=== PATIENT | male | born 1935 | race Caucasian/White ===

== ENCOUNTER → 2016-12-27 | Outpatient (CLI) | payer OTHER ==
[~2016-12-27] MED LIST: ALL300 PO; AMR2 PO; ASPCH81 PO; GLC500 PO; LANS30CA12 PO; LSN25 PO; METO25TA3 PO; MULT-506 PO; OXYC-57 PO; SIMV40TA2 PO; SYN125 PO; [UNRECOGNIZED DRUG - OTHER]
--- NOTE | 2016-12-27 11:59 | DIAGNOSTIC IMAGING REPORT ---
VIDEO SWALLOW HISTORY: Dysphagia INABILITY TO SWALLOW Solids, weight LOSS TECHNIQUE: Video fluoroscopic evaluation of swallowing was performed in the AP and lateral projections by the speech pathology staff. The patient is fed nectar-thick and thin liquid barium, a barium coated wafer, and barium pudding. FLUOROSCOPY TIME: 2 minutes. COMPARISON STUDY: None. FINDINGS: There is normal hyoid excursion and epiglottic deflection. No significant penetration or aspiration identified. Swallowing function is within normal limits. IMPRESSION: 1. No aspiration identified. 2. Please see the speech pathologist report for detailed findings and recommendations. Electronically signed by: Jeffery Bhatt M.D. 12/27/2016 11:58 AM Dictated Date/Time: 12/27/2016 11:57 AM
--- NOTE | 2016-12-27 12:50 | SWALLOWING EVALUATION ---
HISTORY: This 81 year-old man was referred for a VFSS at [facility] in order to address c/o solid food dysphagia and occasional nasal reguritation. He reported being able to clear globus sensation with water. Patient has a PMH significant for coronary artery disease, diabetes, CABG, hernia repair, right hip replacement. 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 He had no information regarding results of EGD. Currently the patient's diet level is regular, but he reports needing to eat foods that are moist/slippery and needing to drink a lot of water with meals. PROCEDURE: The patient was seen in the Radiology Department of [facility] for the VFSS. Cursory examination of the oral cavity revealed adequate dentition. Movement of the articulators was WNL. The patient was seated on a stool and was viewed in both the Anterior-Posterior (A-P) and Lateral planes. Volitional phonation exercises completed in the A-P plane revealed bilateral vocal fold movement and vocal intensity within functional limits. In the lateral plane, the patient was given the following boluses: 1 tsp. thin liquid barium x 2, sequential swallows of thin liquid barium self-presented from a cup, 1 tsp. nectar-thick liquid barium, single swallow nectar-thick liquid barium self-presented from a cup, 1 tsp. barium pudding, and 1 club cracker with barium pudding. The patient was then repositioned into the A-P plane and given 1 tsp. barium pudding. RESULTS: Oral Stage: Labial closure and tongue control were adequate. Mastication was timely and efficient. Bolus transport was timely with brisk tongue motion. There was complete oral clearance. Swallow was timely with the head of the bolus at the posterior angle of ramus at the first hyoid excursion. Pharyngeal Stage: Soft palate elevation was complete. There was partial laryngeal elevation with partial superior movement of the thyroid cartilage/partial approximation of arytenoids to epiglottic petiole. Hyoid excursion was complete. Epiglottic inversion was complete. Laryngeal vestibular closure was incomplete with a narrow column of contrast present. Pharyngeal stripping wave was present but diminished. Pharyngeal contraction showed bilateral bulging. Pharyngoesophageal segment opening had partial distention/partial duration. Tongue base retraction was reduced with a trace column of contrast between the tongue base and posterior wall. There was a collection of residue on the pharyngeal structures with residue stuck on the posterior pharyngeal wall, valleculae, and pyriforms, but was cleared with a second swallow. Patient showed no aspiration throughout the study. Bilateral bulging in pharyngeal contraction represents muscle weakness. Patient frequently requires multiple swallows to clear boluses from the pharyngeal cavity, but is aware of the problem and alternates solid food with sips of water. Esophageal Stage: There was mid-distal retention in the esophagus. SUMMARY/RECOMMENDATIONS: This patient presents with mild pharyngeal dysphagia and s/s esophageal dysfunction. The following is recommended: 1. Slippery diet. Choose foods that are moist, loose, and slippery. Avoid foods that are thick, pasty, and doughy. Use condiments as needed to make foods slippery. 2. GERD precautions: patient should be seated up fully upright during and for 30 minutes after meals. Alternate solids and liquids. Use multiple swallows as necessary to clear boluses. 3. Patient may benefit from f/u speech therapy to learn exercises to increase strength of swallowing muscles. This may be available via Home Health or Outpatient Speech Services. A summary of the results and recommendations was discussed with patient and understanding was verbalized immediately following the study. Thank you for referral of this patient. Please contact me at if any additional information is needed Laureen Linton [facility]
== END | disposition home or self-care (01) ==
LOC: C.RAD 11:12
PROVIDERS: ATTEND Internal Medicine
DX: R13.12 Dysphagia, oropharyngeal phase (principal); R63.3 Feeding difficulties

== ENCOUNTER 2017-09-28 13:36 | Inpatient (IN) | payer OTHER ==
[~2017-09-28] VITALS: Ht 172.7 cm; Wt 60.4 kg
[2017-09-28 13:46] VITALS: Ht 172.7 cm; Wt 60.4 kg
--- NOTE | 2017-09-28 14:06 | EMERGENCY ROOM VISIT NOTE ---
History Report prepared by Tika: Rob Christina Under the Supervision of: Dr. Maicol Whitfield M.D. First contact with patient: 13:49 Chief Complaint: CHEST PAIN Stated Complaint: CHEST PAIN Nursing Triage Summary: pt here with intermittent chest pains x one month. pt states today had burning in chest into left arm. upon ems arrival pt denied any pain, took 4 baby aspirin prior to arrival. pt denies any sob. pt states hx of 5 stents, no hx of mi History of Present Illness The patient is an 82 year old male who presents to the Emergency Room with complaints of now-resolving chest pain that began at 1210 this afternoon, 1 hour and 40 minutes ago. The patient states that he has been experiencing intermittent "tiny sharp" pains for the past couple of months. Today at 1210 these symptoms worsened. He had a sharp pain that was a 4/10 in severity. The patient then developed some pain in the left arm. This episode lasted for about 30 minutes before resolving spontaneously. There was no nausea or diaphoresis at any time. He had some Aspirin prior to arrival. Over the past couple of months he has also noticed some unusual shortness of breath with exertion. He notes being " tired" after walking up his basement steps. Exertion has not caused the sharp pains to onset or worsen. He does have a history of 5 cardiac stents placed with a Coronary Artery Bypass Graft. He has never had a myocardial infarction. Source of History: patient Onset: 1 hr 40 min ago Position: chest, arm (left) Symptom Intensity: 4/10 in severity Quality: sharp ("tiny sharp") Timing: resolved (resovling ), other (Episode lasted roughly 30 minutes) Associated Symptoms: + SOB, No diaphoresis, No nausea Review of Systems See HPI for pertinent positives & negatives. A total of 10 systems reviewed and were otherwise negative. Past Medical & Surgical Medical Problems: (1) Ralph esophagus (2) Chest pain (3) DM type 2 (diabetes mellitus, type 2) (4) Dyslipidemia (5) HTN (hypertension) (6) Hypothyroidism (7) Iron deficiency anemia (8) Kidney stone (9) Kidney stones (10) Prostate CA Surgical Problems: (1) History of right hip replacement (2) History of right shoulder fracture (3) Hx of CABG (4) Hx of heart artery stent (5) Hx of prostatectomy (6) Hx of thyroidectomy Diabetes Family History Omitted secondary to age. Social History Marital Status: Housing Status: lives with significant other Current/Historical Medications Scheduled Allopurinol (Zyloprim), 300 MG PO DAILY Aspirin (Aspirin), 81 MG PO DAILY Atorvastatin (Lipitor), 20 MG PO DAILY Fluticasone Propionate (Nasal) (Flonase Allergy Relief), 2 SPRAYS CHANG DAILY Lansoprazole (Prevacid Solutab), 30 MG PO DAILY Levothyroxine Sodium (Synthroid), 88 MCG PO DAILY Lisinopril (Zestril), 2.5 MG PO DAILY Lutein-Zeaxanthin (Ocuvite Lutein 25 25-5 mg), 1 CAP PO DAILY Metformin Hcl Er (Glucophage Er), 500 MG PO BID Allergies Coded Allergies: No Known Allergies (Unverified , 09/28/17) Physical Exam Vital Signs Date Time Temp Pulse Resp B/P (MAP) Pulse Ox O2 Delivery O2 Flow Rate FiO2 09/28/17 16:06 73 17 154/72 98 Room Air 09/28/17 15:30 69 20 141/74 97 Room Air 09/28/17 15:00 68 12 136/71 97 Room Air 09/28/17 14:27 66 16 140/79 96 Room Air 09/28/17 13:46 36.6 83 16 165/77 97 Room Air 09/28/17 13:44 81 Physical Exam GENERAL: Patient is in no acute distress. HEENT: No acute trauma, normocephalic atraumatic, mucous membranes moist, no nasal congestion, no scleral icterus. NECK: No stridor, no adenopathy, no meningismus, trachea is midline. LUNGS: Scattered crackles bilaterally, no wheezing. Breath sounds are equal. No respiratory distress. HEART: Irregular rhythm, with a normal rate, no murmurs. ABDOMEN: Soft, nontender, bowel sounds positive, no hernias, no peritonitis. EXTREMITIES: No cyanosis or edema, full range of motion of all the joints without pain or difficulty, no signs for acute trauma. NEUROLOGIC: Oriented x 3, no acute motor or sensory deficits, no focal weakness. SKIN: No rash, no jaundice, no diaphoresis. Medical Decision & Procedures ER Provider Diagnostic Interpretation: Radiology results as stated below per my review and radiologist interpretation: CHEST ONE VIEW PORTABLE CLINICAL HISTORY: CHEST PAIN dyspnea COMPARISON STUDY: No previous studies for comparison. FINDINGS: Slight interstitial prominence throughout both hemithoraces. No evidence for well-defined infiltrate. Prior median sternotomy. Postoperative changes to the left shoulder. Old healed fracture right shoulder with superimposed degenerative change. IMPRESSION: Nonspecific bilateral interstitial prominence. The above report was generated using voice recognition software. It may contain grammatical, syntax or spelling errors. Electronically signed by: Jeffery Bhatt M.D. 09/28/2017 2:28 PM Dictated Date/Time: 09/28/2017 2:27 PM Laboratory Results Test 09/28/17 13:09 09/28/17 14:06 Prothrombin Time 10.4 SECONDS (9.0-12.0) Prothromb Time International Ratio 1.0 (0.9-1.1) Activated Partial Thromboplast Time 25.9 SECONDS (21.0-31.0) Partial Thromboplastin Ratio 1.0 Magnesium Level 1.9 mg/dl (1.8-2.4) Total Bilirubin 0.4 mg/dl (0.2-1) Aspartate Amino Transf (AST/SGOT) 18 U/L (15-37) Alanine Aminotransferase (ALT/SGPT) 20 U/L (12-78) Alkaline Phosphatase 82 U/L (45-117) Total Protein 7.4 gm/dl (6.4-8.2) Albumin 3.7 gm/dl (3.4-5.0) Globulin 3.7 gm/dl (2.5-4.0) Albumin/Globulin Ratio 1.0 (0.9-2) Bedside Troponin I < 0.030 ng/ml (0-0.045) Laboratory results reviewed by me. ECG Per My Interpretation Indication: chest pain Rate (beats per minute): 70 Rhythm: normal sinus Findings: other (No LIBRADO, No PVCs) ED Course 1351: The patient was evaluated in room B8. A complete history and physical exam was performed. 1509: I discussed the case with Dr. Azevedo - Cardiology. He suggests discussing the case with the patient and seeing if he would like me to talk to Dr. Ruelas - Patient's military nurse from [place], and see what he would like to have done. 1518: I discussed the case with the patient. He would like that I consult Dr. Yen - [place] [facility]. 1528: I discussed the case with Dr. Yovana Breen. He thinks we should have the patient brought in to the hospital for a catheterization. 1546: I discussed the case with Kylie Fountain. She will evaluate the patient for further treatment. I made Dr. Azevedo aware of this development. Medical Decision Differential Diagnosis includes; angina, myocardial infarction, anemia, electrolyte imbalance, aortic dissection, pulmonary embolism, musculoskeletal pain. There is no leukocytosis or concerning anemia. No significant electrolyte abnormality, kidney failure or hepatitis. EKG shows a sinus rhythm with PACs, no acute ischemia. Cardiac enzyme testing 1 is not consistent with acute cardiac injury. Chest x-ray does not show pneumonia, pneumothorax or mediastinal widening. The patient presents with chest pain. The pain is now resolved. He does have a long cardiac history. I did discuss his case with [facility]. They recommended I discuss the case with his primary military nurse in the [place] area. I did discuss the case with his military nurse and he actually recommended a hospital stay for further workup, possibly a cardiac catheterization. I talked to the patient, he did consent to a hospital stay. I discussed the case with case management. I did consult the on-call hospitalist and we discussed the case. [facility] cardiology is involved as well. Medication Reconcilliation Current Medication List: was personally reviewed by me Blood Pressure Screening Patient's blood pressure: Elevated blood pressure Referred to hospitalist. Consults Time Called: 1505 Consulting Physician: Dr. Roberto Carlos Breen Returned Call: 1509 I discussed the case with Dr. Roberto Carlos Breen. He suggests discussing the case with Dr. Ruelas - Patient's military nurse from [place], and see what he would like to have done. Additional Consults: Time Called: 1521 Consulted Physician: Dr. Yovana Gaitan Cardiology Returned Call: 1529 Additional Comments: I discussed the case with Dr. Yovana Breen. He thinks we should have the patient brought in to the hospital for a catheterization. Time Called: 1542 Consulted Physician: Kylie Ayoub PA-C Returned Call: 1543 Additional Comments: I discussed the case with Kylie Ayoub PA-C. She will evaluate the patient for further treatment. Impression Primary Impression: Precordial chest pain Scribe Attestation The scribe's documentation has been prepared under my direction and personally reviewed by me in its entirety. I confirm that the note above accurately reflects all work, treatment, procedures, and medical decision making performed by me. Departure Information Dispostion Being Evaluated By Hospitalist Referrals Kerri Camacho M.D. (PCP) Patient Instructions My [facility]
[2017-09-28] MEDS ORDERED: ATOR-22 PO (14:09)
[2017-09-28] MEDS ORDERED: ASPI-461 PO (14:09)
[2017-09-28] MEDS ORDERED: FLUT0.15 NAE (14:09)
[2017-09-28] MEDS ORDERED: LISI-789 PO (14:09)
[2017-09-28] MEDS ORDERED: ALLO300T2 PO (14:09)
[2017-09-28] MEDS ORDERED: LEVO88TA PO (14:09)
[2017-09-28] MEDS ORDERED: LUTE1CAP PO (14:09)
[2017-09-28] MEDS ORDERED: LANS30TA3 PO (14:09)
[2017-09-28] MEDS ORDERED: METF500T5 PO (14:09)
[2017-09-28 14:23] LABS: HEMOGLOBIN 12.5 g/dL (14.0-18.0); MEAN CELL VOLUME 97.5 fL (80-100); MEAN CORPUSCULAR HEMOGLOBIN 34.8 pg (25-34); MEAN CORPUSCULAR HGB CONC 35.7 g/dl (32-36); MEAN PLATELET VOLUME 9.8 fL (7.4-10.4); PLATELET COUNT 250 K/uL (130-400); RED CELL DISTRIBUTION WIDTH CV 12.7 % (11.5-14.5); RED CELL DISTRIBUTION WIDTH SD 44.9 fL (36.4-46.3); WHITE BLOOD COUNT 7.32 K/uL (4.8-10.8)
[2017-09-28 14:29] LABS: PTT PATIENT 25.9 SECONDS (21.0-31.0)
--- NOTE | 2017-09-28 14:30 | DIAGNOSTIC IMAGING REPORT ---
CHEST ONE VIEW PORTABLE CLINICAL HISTORY: CHEST PAIN dyspnea COMPARISON STUDY: No previous studies for comparison. FINDINGS: Slight interstitial prominence throughout both hemithoraces. No evidence for well-defined infiltrate. Prior median sternotomy. Postoperative changes to the left shoulder. Old healed fracture right shoulder with superimposed degenerative change. IMPRESSION: Nonspecific bilateral interstitial prominence. The above report was generated using voice recognition software. It may contain grammatical, syntax or spelling errors. Electronically signed by: Jeffery Bhatt M.D. 09/28/2017 2:28 PM Dictated Date/Time: 09/28/2017 2:27 PM
[2017-09-28 14:53] LABS: CREATININE 1.11 mg/dl (0.60-1.40); POTASSIUM 3.9 mmol/L (3.5-5.1)
[2017-09-28 14:54] LABS: ALBUMIN 3.7 gm/dl (3.4-5.0); CALCIUM 8.2 mg/dl (8.5-10.1); TOTAL PROTEIN 7.4 gm/dl (6.4-8.2)
[2017-09-28] MEDS ORDERED: ONDANSETRON INJ 2 MG/ML 2 ML VIAL IV PRN (16:45)
[2017-09-28] MEDS ORDERED: GLUCAGON FOR INJ 1 MG VIAL SQ PRN (16:45)
[2017-09-28] MEDS ORDERED: MAGNESIUM HYDROXIDE SUSP 30 ML UDC PO PRN (16:45)
[2017-09-28] MEDS ORDERED: NITROGLYCERIN 0.4 MG SL PER TAB CHARGE SL PRN (16:45)
[2017-09-28] MEDS ORDERED: GLUCOSE 40% GEL 15 GM TUBE PO PRN (16:45)
[2017-09-28] MEDS ORDERED: DEXTROSE 50% 50 ML SYR IV PRN (16:45)
[2017-09-28] MEDS ORDERED: GLUCOSE 10 TABS/TUBE PO PRN (16:45)
[2017-09-28] MEDS ORDERED: IV FLUIDS COMPLETED PRN (17:45)
[2017-09-28] MEDS: INSULIN ASPART 100 UNITS/ML 3 ML PEN SC SCH (21:00)
--- NOTE | 2017-09-28 22:11 | History and Physical ---
History & Physical Date & Time of Service: Sep 28, 2017 at 16:44 Chief Complaint: Chest Pain Primary Care Physician: Jean Carlos Bynum D.O. History of Present Illness Source: patient, clinic records, hospital records Pt is 82 y/o M with PMH HTN, dyslipidemia, CAD s/p stent & CABG, kidney stones, Brown's esophagus, prostate CA s/p prostatectomy, iron deficiency anemia requiring iron infusions presented to ER via EMS with c/o CP. Reports approx 12: 10 was watching the news when started with left sided CP with radiation to L arm that lasted approx 30 minutes. He chewed 4 baby aspirin. Pain resolved and pt reports been pain free since. Denies nausea, vomiting, SOB or diaphoresis with this pain today. Pt reports intermittent "twinges" to left chest that last a couple of seconds and can occur with exertion or without exertion for past couple of months. Reports SOB with exertion for past couple of months also. He follows with Dr Yen - advertising assistant in [place]. Denies fever/chills, diaphoresis, N/V/D/C, AGOSTO, dizziness, syncope, vision changes, neck pain, orthopnea, palpitations, cough, sore throat, choking, otalgia, rhinorrhea, abdominal pain, paresthesias, weakness, extremity edema, rashes, urinary symptoms. 02/2017: nuclear stress test: impression: normal myocardial perfusion SPECT images without evidence for pharmacologically induced ischemia. Mild global left ventricular hypokinesis with left ventricular ejection fraction post stress at 41%. Past Medical/Surgical History Medical Problems: (1) Brown esophagus Status: Chronic (2) DM type 2 (diabetes mellitus, type 2) Status: Chronic (3) Dyslipidemia Status: Chronic (4) HTN (hypertension) Status: Chronic (5) Hypothyroidism Status: Chronic (6) Iron deficiency anemia Status: Chronic (7) Kidney stone Status: Resolved (8) Kidney stones Status: Chronic (9) Prostate CA Status: Chronic Surgical Problems: (1) History of right hip replacement Status: Resolved (2) History of right shoulder fracture Permanent Comment: and surgical repair Status: Resolved (3) Hx of CABG Status: Resolved (4) Hx of heart artery stent Status: Resolved (5) Hx of prostatectomy Status: Resolved (6) Hx of thyroidectomy Status: Resolved Family History FH: CAD (coronary artery disease) FH: diabetes mellitus FH: lung cancer FH: stroke Social History Smoking Status: Former Smoker (quit 1991, smoked 0.5ppd x 50 years) Smokeless Tobacco Use: No Alcohol Use: 1 beer a week Drug Use: none Marital Status: Housing status: lives with significant other Immunizations History of Influenza Vaccine: Yes History of Tetanus Vaccine?: Unknown History of Pneumococcal: No History of Hepatitis B Vaccine: Unknown Allergies Coded Allergies: No Known Allergies (Unverified , 09/28/17) Home Medications Scheduled Allopurinol (Zyloprim), 300 MG PO DAILY Aspirin (Aspirin), 81 MG PO DAILY Atorvastatin (Lipitor), 20 MG PO DAILY Fluticasone Propionate (Nasal) (Flonase Allergy Relief), 2 SPRAYS CHANG DAILY Lansoprazole (Prevacid Solutab), 30 MG PO DAILY Levothyroxine Sodium (Synthroid), 88 MCG PO DAILY Lisinopril (Zestril), 2.5 MG PO DAILY Lutein-Zeaxanthin (Ocuvite Lutein 25 25-5 mg), 1 CAP PO DAILY Metformin Hcl Er (Glucophage Er), 500 MG PO BID Review of Systems See HPI for pertinent positives & negatives. All other systems reviewed and were otherwise negative Physical Exam Vital Signs Date Time Temp Pulse Resp B/P (MAP) Pulse Ox O2 Delivery O2 Flow Rate FiO2 09/28/17 15:30 69 20 141/74 97 Room Air 09/28/17 15:00 68 12 136/71 97 Room Air 09/28/17 14:27 66 16 140/79 96 Room Air 09/28/17 13:46 36.6 83 16 165/77 97 Room Air 09/28/17 13:44 81 General Appearance: WD/WN, no apparent distress Head: normocephalic, atraumatic Eyes: normal inspection, PERRL, EOMI, sclerae normal ENT: hearing grossly normal, pharynx normal, + pertinent finding (mucous membranes moist) Neck: supple, no JVD, trachea midline Respiratory/Chest: chest non-tender, lungs clear, normal breath sounds, no respiratory distress Cardiovascular: regular rate, rhythm, no murmur, normal peripheral pulses Abdomen/GI: normal bowel sounds, non tender, soft Extremities/Musculoskelatal: normal inspection, no calf tenderness, normal capillary refill, no pedal edema, normal range of motion Neurologic/Psych: alert, normal mood/affect, oriented x 3 Skin: normal color, warm/dry Diagnostics Laboratory Results Results Past 24 Hours Test 09/28/17 13:09 09/28/17 14:06 09/28/17 16:34 09/28/17 16:38 Range/Units White Blood Count 7.32 4.8-10.8 K/uL Red Blood Count 3.59 4.7-6.1 M/uL Hemoglobin 12.5 14.0-18.0 g/dL Hematocrit 35.0 42-52 % Mean Corpuscular Volume 97.5 80-100 fL Mean Corpuscular Hemoglobin 34.8 25-34 pg Mean Corpuscular Hemoglobin Concent 35.7 32-36 g/dl RDW Standard Deviation 44.9 36.4-46.3 fL RDW Coefficient of Variation 12.7 11.5-14.5 % Platelet Count 250 130-400 K/uL Mean Platelet Volume 9.8 7.4-10.4 fL Prothrombin Time 10.4 9.0-12.0 SECONDS Prothromb Time International Ratio 1.0 0.9-1.1 Activated Partial Thromboplast Time 25.9 21.0-31.0 SECONDS Partial Thromboplastin Ratio 1.0 Sodium Level 134 136-145 mmol/L Potassium Level 3.9 3.5-5.1 mmol/L Chloride Level 101 98-107 mmol/L Carbon Dioxide Level 25 21-32 mmol/L Anion Gap 8.0 3-11 mmol/L Blood Urea Nitrogen 17 7-18 mg/dl Creatinine 1.11 0.60-1.40 mg/dl Est Creatinine Clear Calc Drug Dose 43.4 ml/min Estimated GFR () 70.3 Estimated GFR (Non- 60.7 BUN/Creatinine Ratio 15.3 10-20 Random Glucose 212 70-99 mg/dl Calcium Level 8.2 8.5-10.1 mg/dl Total Bilirubin 0.4 0.2-1 mg/dl Aspartate Amino Transf (AST/SGOT) 18 15-37 U/L Alanine Aminotransferase (ALT/SGPT) 20 12-78 U/L Alkaline Phosphatase 82 45-117 U/L Total Protein 7.4 6.4-8.2 gm/dl Albumin 3.7 3.4-5.0 gm/dl Globulin 3.7 2.5-4.0 gm/dl Albumin/Globulin Ratio 1.0 0.9-2 Bedside Troponin I < 0.030 0-0.045 ng/ml Diagnostic Radiology CXR: IMPRESSION: Nonspecific bilateral interstitial prominence. EKG EKG: sinus rhythm with PAC's. Rate 70 Read by advertising assistant: Sinus rhythm with Premature atrial complexes Otherwise normal ECG No previous ECGs available Confirmed by Shar Jimenez ([id number]) on 09/28/2017 4:42:05 PM Impression Assessment and Plan CHEST PAIN R/O ACS. Risk factors: HTN, hyperlipidemia, DM, hx tobacco use Pt had left sided CP with radiation to L arm, lasted 30 minutes. No pain since. Took 324mg ASA. Initial POC troponin negative in ER. No acute EKG changes noted. -Monitor Vitals -Repeat EKG in am -Will trend troponin -Echo -Cardiology consult - Dr Azevedo in to see pt in ER -lipid panel, continue statin -ASA -Nitro prn CP and repeat EKG for CP -NPO after midnight for possible cardiac stress test or cardiac cath per cardiology DM II HA1c was 6.7 on 05/2017 -HA1c in am -hold metformin -NovoLog sliding scale per protocol DYSLIPIDEMIA Lipid panel 05/2017: Total: 146, LDL: 68, HDL: 53, Triglycerides: 126 -lipid panel in am -continue statin HYPOTHYROIDISM/HX THYROIDECTOMY TSH pending -continue levothyroxine BROWN'S ESOPHAGUS -continue PPI HX KIDNEY STONES -continue allopurinol HX CHRONIC ANEMIA Hx iron deficiency anemia, requiring iron infusions [id number]. last reported approx 1 month ago. Hgb: 12.5. Baseline approx 12.3 -monitor CBC HX PROSTATE CA S/P PROSTATECTOMY DVT Prophylaxis -Heparin SQ Disposition admit Tele Full, no mechanical ventilation as per discussion with pt Follows with Dr Bynum for routine care Pt was seen with Dr Humphrey. See addendum Attending Note: Patient is an 82 yr male with PMH CAD S/P CABG and other problems presents with history of left sided chest pain, MALIN, and generalized weakness. He reports that chest pain to be sharp, radiates to neck and LUE, 4/10 which improved with Aspirin and lasted for about 15 minutes. Currently he is chest pain free. Denies any other relevant history. EKG did not show any signs of acute ischemia. Troponin negative X 2. Physical Exam: Vitals signs as noted above General Appearance:Moderately built and nourished, no apparent distress Head: normocephalic, Atraumatic Eyes: normal inspection, EOMI, PERRL Neck: supple, Trachea midline Respiratory/Chest: Normal breath sounds, CTA Cardiovascular: S1, S2, No murmur Abdomen/GI:Soft, Non tender, Bowel sounds present Extremities/Musculoskelatal:normal inspection, no edema Neurologic/Psych:AAOX3, grossly no focal neurological deficits Skin:normal color,warm, Vertical CABG scar on chest, B/L shoulder surgical scars Assessment and Plan: Chest Pain: R/O ACS Risk factors: H/O CAD S/P CABG, HLP, DM II Initial troponin:Negative X 2 EKG shows: No signs of acute Ischemia CXR: Nonspecific bilateral interstitial prominence Trend serial cardiac enzymes, repeat EKG, fasting lipid panel in AM Check ECHO Start Aspirin, statins Oxygen PRN Likely to get Stress test or Cardiac Cath in AM NPO after midnight Cardiology consulted I personally reviewed the record. Patient is interviewed and examined at bedside. Patient's care is coordinated with Vinita Camacho PA-C. Please refer to the documentation above for details of patient's presentation and for discussion of other issues. Resuscitation Status VTE Prophylaxis Will order VTE Prophylaxis: Yes Additional Copies To Jean Carlos Bynum D.O.
[2017-09-28 23:15] VITALS: BP 125/69; PULSE 64; TEMP 36.7; O2SAT 99
[2017-09-28] MEDS: HEPARIN SOD 5000 UNIT/0.5 ML CARP SQ SCH (23:48)
[2017-09-29] VITALS (16 sets, daily range): BP systolic 114–154; BP diastolic 59–88; PULSE 59–79; TEMP 36.3–36.8; O2SAT 93–100
[2017-09-29] MEDS ORDERED: LEVOTHYROXINE 88 MCG TAB PO SCH (06:00)
[2017-09-29] MEDS: INSULIN ASPART 100 UNITS/ML 3 ML PEN SC SCH ×3 (07:00→21:07)
[2017-09-29 07:22] LABS: HEMATOCRIT 34.5 % (42-52); HEMOGLOBIN 11.3 g/dL (14.0-18.0); MEAN CELL VOLUME 96.6 fL (80-100); MEAN CORPUSCULAR HEMOGLOBIN 31.7 pg (25-34); MEAN CORPUSCULAR HGB CONC 32.8 g/dl (32-36); MEAN PLATELET VOLUME 9.3 fL (7.4-10.4); PLATELET COUNT 233 K/uL (130-400); RED CELL DISTRIBUTION WIDTH CV 12.7 % (11.5-14.5); RED CELL DISTRIBUTION WIDTH SD 44.5 fL (36.4-46.3); WHITE BLOOD COUNT 6.02 K/uL (4.8-10.8)
[2017-09-29 07:49] LABS: CALCIUM 8.1 mg/dl (8.5-10.1); CREATININE 1.09 mg/dl (0.60-1.40); POTASSIUM 3.6 mmol/L (3.5-5.1)
[2017-09-29] MEDS: LISINOPRIL 2.5 MG TAB PO SCH (07:50)
[2017-09-29] MEDS: ATORVASTATIN 20 MG TAB PO SCH (07:50)
[2017-09-29] MEDS: PANTOprazole SOD 40 MG TAB PO SCH (07:50)
[2017-09-29] MEDS: ALLOPURINOL 300 MG TAB PO SCH (07:50)
[2017-09-29] MEDS: ASPIRIN 81 MG ECTAB PO SCH (07:50)
[2017-09-29] MEDS: FLUTICASONE PROPIONATE NA SPR 16 GM BTL NAE SCH (07:51)
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
[2017-09-29] MEDS: HEPARIN SOD 5000 UNIT/0.5 ML CARP SQ SCH ×2 (09:00→21:06)
[2017-09-29 09:09] LABS: HEMOGLOBIN A1C 7.4 % (4.5-5.6)
[2017-09-29] MEDS ORDERED: DIAZEPAM 5MG TAB ONE (10:58)
[2017-09-29] MEDS ORDERED: LIDOCAINE HCL 1% 20 ML VIAL ONE (11:04)
--- NOTE | 2017-09-29 11:06 | Pre Sedation Assessment ---
Pre Sedation Assessment General Date of Sedation: Sep 29, 2017. Vital Signs Past 12 Hours Date Time Temp Pulse Resp B/P (MAP) Pulse Ox O2 Delivery O2 Flow Rate FiO2 09/29/17 08:00 Room Air 09/29/17 07:25 36.6 66 18 123/69 (87) 97 09/29/17 04:00 Room Air 09/29/17 03:25 36.8 67 15 126/59 (81) 96 Room Air 09/29/17 00:00 Room Air 09/28/17 23:15 36.7 64 17 125/69 (87) 99 Room Air Review Cardiovascular: regular rate, rhythm, no edema, no JVD Lungs: lungs clear Pre-Sedation Airway Assessment Smoking Status: Former Smoker (quit 1991, smoked 0.5ppd x 50 years) Hx of Sleep Apnea: No Short Thick Neck: No Oral Cavity: WNL Mallampati Classification: Class II ASA Classification: Class III NPO Status Date of Last Intake of Fluids: Sep 28, 2017 Time of Last Intake of Fluids: 2330 Procedure Planning Contraindications for Sedation: None Current Medications Reviewed: Yes Notes The planned sedation has been discussed with the patient. Informed Consent was obtained. I have identified the patient, determined the appropriateness of sedation and have assessed the patient immediately prior to the procedure. All medicine(s) and interventions are by my order.
--- NOTE | 2017-09-29 11:22 | PROGRESS NOTE ---
DATE: 09/29/2017 CARDIOLOGY CONSULTATION AND FOLLOWUP NOTE The patient seen and examined. Chart, medications, telemetry reviewed. SUBJECTIVE: The patient has had no further chest discomfort overnight, but he has been sedentary. Cardiac enzymes have returned negative. Notes no dizziness or lightheadedness. Notes no syncope or near syncope. Notes no arrhythmias on monitor. OBJECTIVE: VITAL SIGNS: Heart rate is 66, blood pressure is 123/69. HEENT: Normocephalic and atraumatic. Nares without discharge. Throat was clear. NECK: Supple without thyromegaly, lymphadenopathy, or JVD. There are no carotid bruits. LUNGS: Clear to auscultation. CARDIOVASCULAR: Regular. There is no S3 gallop. ABDOMEN: Soft, nontender. EXTREMITIES: Without cyanosis or clubbing. There is no peripheral edema. There are intact distal pulses. There is no audible abdominal or femoral bruits. DATA: EKG today demonstrates sinus bradycardia with improved T-wave inversion in inferior leads. Echocardiogram today demonstrates on preliminary review hypokinesis of the anterior posterior wall at the base and midlevel, otherwise preserved LV function, mild mitral insufficiency. LABORATORY STUDIES: Sodium is 135, potassium 3.6, chloride is 103, bicarbonate is 27, BUN is 14, creatinine is 1.09, glucose is 140, calcium is 8.1. Cholesterol is 129, LDL is 59. IMPRESSION: An 82-year-old male who usually got excellent health and class 1 functional capacity with known coronary artery disease with single-vessel coronary artery bypass grafting, DOMINGUEZ to the LAD in 2006, prior stenting of the left anterior descending and right coronary artery historically, presents now with a substantial change in exercise capacity, exertional chest discomfort consistent with angina equivalent. Discussed with the patient. He has been recommended to undergo cardiac catheterization by primary warehouse order puller. I agree with recommendations, procedure and risks explained in detail to the patient including risks of , myocardial infarction, stroke, bleeding, infection, dye reaction, renal, vascular and embolic injury. PLAN: Today would be image coronaries and assess need for further interventions. The patient is agreeable to plan. He has been n.p.o. since before midnight.
--- NOTE | 2017-09-29 11:31 | ECHOCARDIOGRAM REPORT ---
*NOTICE TO RECEIVING [employer] This information is strictly Confidential and protected under [place] law. [place] law prohibits you from making any further disclosure of this information unless further disclosure is expressly permitted by the written consent of the person to whom it pertains or is authorized by law. A general authorization for the release of medical or other information is not sufficient for this purpose. Hospital accepts no responsibility if the information is made available to any other person, INCLUDING THE PATIENT. Interpretation Summary * Name: ZAID DRAKE Study Date: 09/29/2017 09:28 AM BP: 126/59 mmHg * Patient Location: [facility] HR: 67 * : 1935 (M/d/yyyy) Gender: Male Height: 67 in * Age: 82 yrs Ethnicity: CA Weight: 136 lb * Ordering Physician: Vinita Camacho * Referring Physician: Self, Referred * Performed By: Quynh Ho RDCS * * Reason For Study: Chest Pain * BSA: 1.7 m2 * -- Conclusions -- * Normal LV chamber size and wall thickness. * Normal LV systolic function, EF 50-55%. * No segmental left ventricular wall motion abnormalities are noted. * Grade I diastolic dysfunction. * Aortic valve sclerosis moderate, without significant aortic valvular stenosis. * Mild mitral regurgitation. * Mild left atrial enlargement. Procedure Details * A complete two-dimensional transthoracic echocardiogram was performed (2D, M-mode, Doppler and color flow Doppler). Left Ventricle * The left ventricle is normal in size. * There is normal left ventricular wall thickness. * Ejection Fraction = 50-55%. * Left ventricular systolic function is normal. * No segmental left ventricular wall motion abnormalities are noted. Right Ventricle * The right ventricular cavity size is normal (basal dimension <4.2 cm in right ventricular apical 4-chamber view). * The right ventricular systolic function is normal as assessed by tricuspid annular plane systolic excursion (TAPSE) (normal >1.5 cm). Atria * The left atrium is mildly dilated. * Right atrial size is normal. * No ASD detected; PFO is not assessed. Mitral Valve * The mitral valve anatomy is normal. * There is no mitral valve stenosis. * There is mild mitral regurgitation. Tricuspid Valve * The tricuspid valve is normal in structure and function. Aortic Valve * The aortic valve is trileaflet. * Aortic valve sclerosis moderate, without significant aortic valvular stenosis. * There is no significant aortic regurgitation. Pulmonic Valve * The pulmonary valve is not well seen, but the Doppler examination is normal without significant regurgitation or stenosis. Great Vessels * The aortic root is normal size. Pericardium/Pleural * There is no pericardial effusion. Left Ventricular Diastolic Function * Grade I diastolic dysfunction, (abnormal relaxation pattern). MMode 2D Measurements and Calculations IVSd 0.78 cm IVSs 1.1 cm LVIDd 5.0 cm LVIDs 3.7 cm LVPWd 1.2 cm LVPWs 1.6 cm IVS/LVPW 0.64 FS 25.4 % EDV(Teich) 117.1 ml ESV(Teich) 58.6 ml EF(Teich) 49.9 % EDV(cubed) 123.4 ml ESV(cubed) 51.2 ml EF(cubed) 58.5 % % IVS thick 44.2 % % LVPW thick 34.5 % LV mass(C)d 180.5 grams LV mass(C)dI 105.1 grams/m\S\2 LV mass(C)s 184.0 grams LV mass(C)sI 107.2 grams/m\S\2 SV(Teich) 58.5 ml SI(Teich) 34.1 ml/m\S\2 SV(cubed) 72.2 ml SI(cubed) 42.1 ml/m\S\2 Ao root diam 3.1 cm Ao root area 7.3 cm\S\2 ACS 1.5 cm LA dimension 4.0 cm LA/Ao 1.3 LVAd ap4 34.0 cm\S\2 LVLd ap4 7.9 cm EDV(MOD-sp4) 120.1 ml EDV(sp4-el) 124.3 ml LVAs ap4 20.8 cm\S\2 LVLs ap4 6.6 cm ESV(MOD-sp4) 58.3 ml ESV(sp4-el) 55.6 ml EF(MOD-sp4) 51.4 % EF(sp4-el) 55.3 % LVAd ap2 26.6 cm\S\2 LVLd ap2 8.1 cm EDV(MOD-sp2) 77.0 ml EDV(sp2-el) 74.6 ml LVAs ap2 17.5 cm\S\2 LVLs ap2 6.8 cm ESV(MOD-sp2) 37.3 ml ESV(sp2-el) 38.5 ml EF(MOD-sp2) 51.5 % EF(sp2-el) 48.4 % LVLd %diff 2.1 % EDV(MOD-bp) 96.4 ml LVLs %diff 2.2 % ESV(MOD-bp) 47.4 ml EF(MOD-bp) 50.8 % SV(MOD-sp4) 61.7 ml SI(MOD-sp4) 36.0 ml/m\S\2 SV(MOD-sp2) 39.7 ml SI(MOD-sp2) 23.1 ml/m\S\2 SV(MOD-bp) 49.0 ml SI(MOD-bp) 28.5 ml/m\S\2 SV(sp4-el) 68.7 ml SI(sp4-el) 40.0 ml/m\S\2 SV(sp2-el) 36.1 ml SI(sp2-el) 21.1 ml/m\S\2 Doppler Measurements and Calculations MV E max faye 54.3 cm/sec MV A max faye 67.9 cm/sec MV E/A 0.80 MV dec time 0.45 sec Ao V2 max 100.8 cm/sec Ao max PG 4.1 mmHg Ao max PG (full) 2.7 mmHg LV V1 max PG 1.4 mmHg LV V1 max 59.2 cm/sec PA V2 max 96.4 cm/sec PA max PG 3.7 mmHg PI max faye 164.2 cm/sec PI max PG 10.8 mmHg PI dec slope 116.5 cm/sec\S\2 PI P1/2t 412.9 msec
[2017-09-29] MEDS ORDERED: NiCARDipine HCL INJ 2.5 MG/ML 10 ML AMP ONE (11:57)
[2017-09-29] MEDS ORDERED: MIDAZOLAM HCL 1 MG/ML 2ML VIAL ONE (11:57)
[2017-09-29] MEDS ORDERED: NITROGLYCERIN/D5W 100MCG/ML 20ML SYR ONE (11:57)
[2017-09-29] MEDS ORDERED: FENTANYL CITRATE INJ 50 MCG/1 ML 2 ML VIAL ONE (11:57)
[2017-09-29] MEDS ORDERED: HEPARIN SOD (PORCINE) 1000 UNIT/ML 10 ML VIAL ONE (11:57)
--- NOTE | 2017-09-29 12:07 | [facility] Post Operative Brief Note ---
Preliminary Procedure Note Procedure Date Sep 29, 2017. Pre-Procedure Diagnosis Angina AUC Score 7 Post-Procedure Diagnosis Severe CAD Procedure(s) Performed Coronary Angiography, Left Heart Cath Utilization Management Rn Dr. Chase Azevedo Sourcing Coordinator(s) Dax Kline Estimated Blood Loss <15 Medication(s) Lidocaine 1% (local infiltration), Diphenhydramine (25 mg po), Diazepam (5mg po) Preliminary Findings Right dominant coronary anatomy Left main: Moderately long and calcified ostial stenosis 75% Left anterior descending: Type III vessel with long area of stenting in its proximal third. There is diffuse disease in the proximal third with an 80% in- stent stenosis. DOMINGUEZ graft attaches to the mid vessel and fills it well to the apex with competitive flow through the [place] vessel DOMINGUEZ graft to the LAD: Patent with excellent graft anastomosis Ramus intermedius: This is a small insignificant vessel Circumflex: Nondominant but with large circumflex and single posterior lateral branch. Mild luminal irregularities are throughout but no obstruction other than 20-30% origin Right coronary artery: Large caliber vessel with extensive stenting in its proximal midportion. At the AV groove and gives rise to a long posterior ventricular branch and a long posterior descending artery. There is a mid vessel in-stent stenosis of 90% or greater. LV angiography not performed Left ventricular end-diastolic pressure 5 Recommendations PCI without planned CABG (Andie Kline) Specimens None Fluids (cc crystalloids) 50 Anesthesia Start 1101 End 1137 Oral anxiolytic only Procedural Complication(s) None Disposition PCU
--- NOTE | 2017-09-29 12:44 | Post Sedation Assessment ---
Post Sedation Assessment General Date of Sedation Sep 29, 2017. Vital Signs: Vital Signs Past 12 Hours Date Time Temp Pulse Resp B/P (MAP) Pulse Ox O2 Delivery O2 Flow Rate FiO2 09/29/17 08:00 Room Air 09/29/17 07:25 36.6 66 18 123/69 (87) 97 09/29/17 04:00 Room Air 09/29/17 03:25 36.8 67 15 126/59 (81) 96 Room Air Post Procedure Recovery Score Activity: (2) Moves 4 extremities * Respiration: (2) Deep breath/cough Circulation: (2) +/-20% PreAnes Value Consciousness: (2) Fully Awake Oxygen Saturation: (2) > 92% On Room Air Post Anesthesia Score: 10 Discharge Sedation Level of Care: Fast Track Phase II Post Sedation Plan On clinical assessment, the patient appears to have tolerated the sedation without complications. Patient is recovering as anticipated. Patient will continue to be monitored by nursing and may be discharged when sedation discharge criteria are met per below protocol. Upon Completions of procedure and additional 15 minutes continue every 5 minute vital signs and the P.A.R. score; then discharge to a Phase I or Fast Track to Phase II per the following guidelines: * Discharge Patient to appropriate Phase II area if PAR is 8 or greater or return to pre- procedure baseline. The post - procedure orders will be as directed. * If PAR score is less than 8 or not return to pre-procedure baseline then patient will follow Phase I monitoring till PAR is reached for Phase II. The Phase I may be done in procedure room or may call to secure a Phase I area. * If naloxone or flumazenil are used for reversal, hold in Phase I for an additional 60 -120 minutes before discharge to Phase II. Please call the Sedation Physician to re-evaluate and complete post-note for discharge to Phase II area. Do NOT discharge from procedure sedation or Phase 1 until post- sedation evaluation note is complete by procedure /sedation MD Sedation Discharge Instructions to be given to the patient at discharge to home.
[2017-09-29] MEDS ORDERED: CLOPIDOGREL BISULFATE 300 MG TAB PO ONE (12:49)
--- NOTE | 2017-09-29 12:53 | Cardiac Catheterization ---
Procedure Note Procedure Date Sep 29, 2017. 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 Azevedo from earlier today for full details of patient's coronary angiography. Patient found to have 90+% mid RCA in-stent restenosis which was thought to be likely culprit for acute symptoms. -- PCI of RCA-- Antithrombotic therapy: Heparin, Clopidogrel Procedure: RCA cannulated with JR4 guide Oven Drier Tender 50 wire passed across lesion into distal vessel Intra-stent RCA lesion predilated with 3.0 compliant balloon Dilated lesion stented with 3.5 x 18 Xience LADI extending a few mm distal to prior stent Stent post-dilated with 3.75 noncompliant balloon to high atmospheres IC vasodilators administered for spasm Post procedure HAYDEE 3 flow, stent well expanded with minimal residual stenosis and no apparent cardiac complications. Arterial Closure: AngioSeal Summary: 1. Successful PCI of mid RCA in-stent restenosis with a single LADI (3.5 x 18 Xience extending just distal to prior stent; post-dilated with 3.75 NC). 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 Azevedo Consult cardiac Rehab If recurrent symptoms in future can consider possible PCI of protected ostial left main, +/- FFR of ostial RCA Hemodynamics Rest Ao: -- Final Ao: -- LV: 98/47/68 Recommendations PCI without planned CABG Specimens None Radiation Exposure (mGy) 2504 Contrast (mls) 131 Visi Fluids (cc crystalloids) 150 Drains None Anesthesia Moderate Procedural Complication(s) None Disposition PCU ACC Data Cardiac Status Clinical evaluation leading to the procedure CAD Presntation: Unstable angina Anginal Classification: CCS III Heart Failure: No, NYHA Class: CCS I Cardiogenic Shock w/in 24Hrs: No Cardiac Arrest w/in 24Hrs: No Imaging studies past 6 months: Yes Stress studies past 6 months: No Diagnostic Physician's Name: Chase Azevedo M.D. Status: Elective Closure Device Percutaneous Entry Location: Femoral Closure Device: Angio-Seal Recommendations: Medical therapy and/or Counseling PCI Indication: Unstable Angina Lesion Segment Name: mid RCA Culprit Artery: Yes Stenosis Prior to Rx (%): 90 Chronic Total Occlusion: No IVUS: No FFR: No Pre-Procedure HAYDEE Flow: 3 Previously Treated Lesion: Yes Treated Lesion: Timeframe: greater than 2 years Treated with Stent: Yes In-Stent Restenosis: Yes Stent Type: Non-LADI Lesion Complexity: Non-High/Non-C Lesion Length (mm): 12 Thrombus Present: No Bifurcation Lesion: No Guidewire Across Lesion: Yes Guidewire: Stenosis Post-Procedure (%): 0 Post-Procedure HAYDEE Flow: 3 Device(s) Deployed: Yes Intraprocedure Events Significant Dissection: No Perforation: No
[2017-09-29] MEDS ORDERED: SODIUM CHLORIDE 0.9% 1000ML 1,000 ML IV SCH (13:00)
--- NOTE | 2017-09-29 16:13 | Progress Note ---
Medicine Progress Note Date & Time of Visit: Sep 29, 2017 at 15:44. Subjective Pt was seen and examined Lying in bed with no distress Pt said that he feels fine He just had cardiac cath done Pt said that he does have any chest pain now Unable to keep his legs down to prevent any hematoma from the right groin area denies any dizziness, palpitation, chest pain and SOB Objective Last 8 Hrs Date Time Temp Pulse Resp B/P (MAP) Pulse Ox O2 Delivery O2 Flow Rate FiO2 09/29/17 15:40 72 18 131/64 (86) 95 Room Air 09/29/17 15:00 72 16 152/88 (109) 09/29/17 14:30 36.4 71 16 154/69 (97) 96 Room Air 09/29/17 14:00 36.6 79 18 133/79 (97) 97 Room Air 09/29/17 13:30 36.5 66 18 119/65 (83) 96 Room Air 09/29/17 13:15 36.7 63 18 116/71 (86) 94 Room Air 09/29/17 13:04 36.3 59 16 127/72 (90) 95 Room Air 09/29/17 12:50 66 18 128/67 (87) 99 Room Air 09/29/17 12:40 65 18 125/59 (81) 99 Room Air 09/29/17 08:00 Room Air Physical Exam: General- No acute distress Head- atraumatic Eyes- PERRL, EOMI ENT- oropharynx clear Neck- supple, no JVD Lungs- clear to auscultation Heart- regular rhythm Abdomen- normal bowel sounds, soft Extremities- No calf tenderness, right groin area with dressing on. Neuro- alert, oriented x 3; PERRL, EOMI Skin- warm & dry Laboratory Results: Last 24 Hours Test 09/28/17 19:07 09/28/17 20:43 09/29/17 01:00 09/29/17 06:20 Troponin I < 0.015 ng/ml < 0.015 ng/ml Bedside Glucose 140 mg/dl 140 mg/dl Test 09/29/17 07:03 09/29/17 12:21 09/29/17 13:22 White Blood Count 6.02 K/uL Red Blood Count 3.57 M/uL Hemoglobin 11.3 g/dL Hematocrit 34.5 % Mean Corpuscular Volume 96.6 fL Mean Corpuscular Hemoglobin 31.7 pg Mean Corpuscular Hemoglobin Concent 32.8 g/dl RDW Standard Deviation 44.5 fL RDW Coefficient of Variation 12.7 % Platelet Count 233 K/uL Mean Platelet Volume 9.3 fL Sodium Level 135 mmol/L Potassium Level 3.6 mmol/L Chloride Level 103 mmol/L Carbon Dioxide Level 27 mmol/L Anion Gap 6.0 mmol/L Blood Urea Nitrogen 14 mg/dl Creatinine 1.09 mg/dl Est Creatinine Clear Calc Drug Dose 42.4 ml/min Estimated GFR () 71.9 Estimated GFR (Non- 62.0 BUN/Creatinine Ratio 12.8 Random Glucose 140 mg/dl Estimated Average Glucose 166 mg/dl Hemoglobin A1c 7.4 % Calcium Level 8.1 mg/dl Triglycerides Level 125 mg/dl Cholesterol Level 129 mg/dl HDL Cholesterol 45 mg/dl LDL Cholesterol, Calculated 59 mg/dl VLDL Cholesterol, Calculated 25 mg/dl Cholesterol/HDL Ratio 2.9 Thyroid Stimulating Hormone (TSH) 0.278 uIu/ml Free Thyroxine 1.06 ng/dl Kaolin Activated Coagulation Time 241 SECONDS Bedside Glucose 123 mg/dl Assessment & Plan CHEST PAIN Risk factors: HTN, Hyperlipidemia, DM, hx tobacco use Received Aspirin 324mg on admission Troponinx3 sets negative Cardiology on board S/P Successful PCI of mid RCA in-stent restenosis with a single LADI (3.5 x 18 Xience extending just distal to prior stent; post-dilated with 3.75 NC). Continue dual-antiplatelet therapy with aspirin and plavix for at least 12 months Continue statin therapy LDL 59 Monitor in telemetry ECHO showed * Normal LV chamber size and wall thickness. * Normal LV systolic function, EF 50-55%. * No segmental left ventricular wall motion abnormalities are noted. * Grade I diastolic dysfunction. * Aortic valve sclerosis moderate, without significant aortic valvular stenosis. * Mild mitral regurgitation. * Mild left atrial enlargement. DM II Recent Hba1c 7.4 (09/29/17) Continue holding metformin NovoLog sliding scale per protocol DYSLIPIDEMIA LDL at goal continue statin HYPOTHYROIDISM/ HX THYROIDECTOMY Will decrease levothyroxine to 75mcg Check TSH between 4 to 6 weeks BROWN'S ESOPHAGUS continue PPI HX KIDNEY STONES continue allopurinol HX CHRONIC ANEMIA Hbg 11.3 Stable HX PROSTATE CA S/P PROSTATECTOMY DVT Prophylaxis Heparin SQ Disposition Continue monitor in tele Current Inpatient Medications: Current Inpatient Medications Medications (Trade) Dose Ordered Sig/Mandi Route Start Time Stop Time Status Last Admin Dose Admin Acetaminophen (Tylenol Tab) 650 mg Q4H PRN PO 09/28/17 16:45 10/28/17 16:44 Magnesium Hydroxide (Milk Of Magnesia Susp) 30 ml Q12H PRN PO 09/28/17 16:45 10/28/17 16:44 Ondansetron HCl (Zofran Inj) 4 mg Q6H PRN IV 09/28/17 16:45 10/28/17 16:44 Nitroglycerin (Nitrostat Tab) 0.4 mg UD PRN SL 09/28/17 16:45 10/28/17 16:44 Aspirin (Ecotrin Tab) 81 mg QAM PO 09/29/17 09:00 10/29/17 08:59 09/29/17 07:50 81 MG Insulin Aspart (novoLOG ASPART) SLIDING SCALE If C... ACHS SC 09/28/17 21:00 10/28/17 20:59 Glucose (Glucose 40% Gel) 15-30 GRAMS 15 GRAMS... UD PRN PO 09/28/17 16:45 10/28/17 16:44 Glucose (Glucose Chew Tab) 4-8 Tablets 4 Tabl... UD PRN PO 09/28/17 16:45 10/28/17 16:44 Dextrose (Dextrose 50% 50ML Syringe) 25-50ML OF 50% DW IV FOR... UD PRN IV 09/28/17 16:45 10/28/17 16:44 Glucagon (Glucagon Inj) 1 mg UD PRN SQ 09/28/17 16:45 10/28/17 16:44 Allopurinol (Zyloprim Tab) 300 mg DAILY PO 09/29/17 09:00 10/29/17 08:59 09/29/17 07:50 300 MG Atorvastatin Calcium (Lipitor Tab) 20 mg DAILY PO 09/29/17 09:00 10/29/17 08:59 09/29/17 07:50 20 MG Fluticasone Propionate (Flonase Nasal [place]) 2 sprays DAILY CHANG 09/29/17 09:00 10/29/17 08:59 09/29/17 07:51 2 SPRAYS Pantoprazole Sodium (Protonix Tab) 40 mg QAM PO 09/29/17 09:00 10/29/17 08:59 09/29/17 07:50 40 MG Levothyroxine Sodium (Synthroid Tab) 88 mcg DAILYBB PO 09/29/17 06:00 10/29/17 06:59 Lisinopril (Zestril Tab) 2.5 mg DAILY PO 09/29/17 09:00 10/29/17 08:59 09/29/17 07:50 2.5 MG Heparin Sodium (Porcine) (Heparin Sq 5000 Unit/0.5ml) 5,000 unit Q12 SQ 09/28/17 21:00 10/28/17 20:59 Miscellaneous (Iv Fluids Completed) 1 ea PRN PRN N/A 09/28/17 17:45 09/28/18 17:44 Sodium Chloride 1,000 ml @ 100 mls/hr Q10H IV 09/29/17 13:00 09/29/17 20:29 Clopidogrel Bisulfate (plAVix TAB) 75 mg QAM PO 09/30/17 09:00 10/30/17 08:59
--- NOTE | 2017-09-29 19:08 | CARDIAC CATH REPORT ---
PRIMARY CARE PHYSICIAN: Dr. Bynum. PRIMARY OPHTHALMIC ASST: Dr. Yen in [place]. INDICATIONS: Exertional angina, dramatic change in exercise capacity, history of known coronary disease. PROCEDURE: Left heart catheterization, coronary angiography. BRIEF HISTORY: The patient is an 82-year-old male with history of known coronary artery disease with prior multiple coronary interventions per the patient in 2004 with stenting to the left anterior descending and right coronary artery. The patient ultimately re-presented with restenosis of the left anterior descending in 2006 and underwent coronary bypass grafting single vessel, receiving DOMINGUEZ graft to the LAD. He has had stable class 1-2 functional capacity for multiple years but notes over the past 1 month's time substantial decline in overall functional capacity and exertional chest pressure and tightness. Symptoms culminated in rest symptoms on the day of admission on 09/28/2017. Cardiac markers were negative for myocardial injury. The patient manifested no congestive heart failure. Rest angina was noted at the time of admission, class 3-4. No stress testing was performed. Echocardiogram done prior to the procedure demonstrated mild hypokinesis of the inferior and posterior wall, reflecting new finding. ACCESS: Right femoral artery. CATHETERS: A 5-Australian arterial sheath, 5-Australian JL4, 5-Australian 3DRC, 5-Australian straight pigtail. CONTRAST: Nonionic x91 mL Visipaque. IV FLUIDS: 50 mL normal saline. SEDATION: Start 11:01, end 11:37. The patient received only anxiolytic therapy with Valium 5 mg p.o. and Benadryl 25 mg p.o. MEDICATIONS: Access site was anesthetized locally with lidocaine 1%. RESULTS: CORONARY ANGIOGRAPHY: Note right dominant coronary anatomy is present. LEFT MAIN: The left main is moderate in caliber and length. It gives rise to a large left anterior descending, trivial ramus intermedius and the left circumflex. It is mildly calcified. There is an ostial narrowing of 60-70%. LEFT ANTERIOR DESCENDING: Left anterior descending is type 3 in distribution. It gives rise to septal branches in its proximal segment, followed by a moderately sized diagonal branch at the end of its proximal third and then courses to terminate beyond the apex, the left internal mammary artery graft anastomosis with the mid portion in the left anterior descending and there is competitive filling of the distal vessel. The proximal left anterior descending has extensive area of stenting with an in-stent narrowing of 80% in its mid portion. The distal vessel has moderate irregularities but no obstructive disease. The anastomosis point of the left internal mammary graft is widely patent. RAMUS INTERMEDIUS: This is a trivial vessel and is free of disease. LEFT CIRCUMFLEX: Left circumflex is nondominant, gives rise to a large obtuse marginal with a single posterolateral branch. There are mild luminal irregularities, 20-30% narrowing at the origin, otherwise no obstruction. RIGHT CORONARY ARTERY: The right coronary is very large caliber vessel, gives rise to a right ventricular branch in its mid portion, a small acute marginal branch at the AV groove, a long posterior descending and a long posterior ventricular branch along the AV groove. Within the right coronary artery, there is an area of extensive stenting in its proximal third. Within the area of stent, there is a high-grade 90% stenosis at the end of the proximal third. The distal vessel has moderate irregularities. LV angiography not performed in an attempt to conserve contrast with normal overall LV function on echocardiogram. HEMODYNAMICS: Initial aortic root pressure was 144/53 with a mean of 88. LV pressure following coronary angiography was 118/0 with LVEDP of 5. Closing aortic root pressure was 137/53 with a mean of 91. RADIATION EXPOSURE: 4.0 minutes of fluoroscopy, 950 milligrays, DAP score 6316. FINAL IMPRESSIONS: 1. Widely patent left internal mammary artery graft to the mid left anterior descending. 2. High-grade stenosis of the mid right coronary artery in area of prior stenting of 90%. 3. 80% narrowing in the proximal left anterior descending prior to the area of left anterior descending graft. 4. Ostial narrowing of the left main, eccentric and calcified, 60%-70%. RECOMMENDATIONS: The patient is referred for coronary intervention of the right coronary artery. If no clinical improvement, consideration may be made for protected left main intervention.
[2017-09-29] MEDS: ACETAMINOPHEN 325 MG TAB PO PRN ×2 (19:50→23:42)
[2017-09-30] VITALS (7 sets, daily range): BP systolic 116–132; BP diastolic 64–74; PULSE 61–76; TEMP 36.5–36.9; O2SAT 94–98
[2017-09-30] MEDS ORDERED: LEVOTHYROXINE 75 MCG TAB PO SCH (06:00)
--- NOTE | 2017-09-30 07:31 | Clinical Documentation Query ---
NAYA Doe : CLINICAL DOCUMENTATION QUERY Documentation includes: CHEST PAIN. 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 As appropriate, please consider documentation as suggested below. Thank you. Known CAD with risk factors of age, gender, hypertension, hyperlipidemia, DM, tobacco abuse. Treated with diagnostic and interventional cardiac catheterization. Underwent successful PCI of mid RCA in-stent restenosis with a single LADI. To be maintained on DAPT for at least 12 months. Continue statin. Monitor on telemetry. In your clinical opinion is this patient being managed for: ( ) Unstable angina ( ) Not Agree ( ) Other explanation of clinical findings (Please Explain) ( ) Unable to determine (Please Define) ( ) Need to Discuss The medical record reflects the following clinical findings, treatment, and risk factors. Clinical Indicators: As above Treatment: Underwent successful PCI of mid RCA in-stent restenosis with a single LADI. To be maintained on DAPT for at least 12 months. Continue statin. Monitor on telemetry. Risk Factors:Known CAD with risk factors of age, gender, hypertension, hyperlipidemia, DM, tobacco abuse Please clarify and document your clinical opinion in the progress notes and discharge summary. Terms such as "probable", "suspected", "likely", "questionable", "possible", or "still to be ruled out" are acceptable. IF IN AGREEMENT, YOU MUST DOCUMENT ABOVE DIAGNOSTIC STATEMENT IN DAILY PROGRESS NOTES AND DISCHARGE SUMMARY. This document is not part of the patient's record. Thank You, Owen Epstein, RN [phone]
[2017-09-30] MEDS: INSULIN ASPART 100 UNITS/ML 3 ML PEN SC SCH ×2 (08:05→13:03)
[2017-09-30] MEDS: LISINOPRIL 2.5 MG TAB PO SCH (08:06)
[2017-09-30] MEDS: ASPIRIN 81 MG ECTAB PO SCH (08:06)
[2017-09-30] MEDS: HEPARIN SOD 5000 UNIT/0.5 ML CARP SQ SCH (08:06)
[2017-09-30] MEDS: ATORVASTATIN 20 MG TAB PO SCH (08:06)
[2017-09-30] MEDS: ALLOPURINOL 300 MG TAB PO SCH (08:06)
[2017-09-30] MEDS: PANTOprazole SOD 40 MG TAB PO SCH (08:07)
[2017-09-30] MEDS: FLUTICASONE PROPIONATE NA SPR 16 GM BTL NAE SCH (08:08)
[2017-09-30] MEDS ORDERED: CLOPIDOGREL BISULFATE 75 MG TAB PO SCH (09:00)
--- NOTE | 2017-09-30 10:13 | CARDIOLOGY PROGRESS NOTE ---
DATE: 09/30/2017 CARDIOLOGY CONSULTATION FOLLOWUP NOTE The patient was seen and examined. Chart, medications, and telemetry were reviewed. SUBJECTIVE: The patient was ambulatory in the hallways. Notes no chest pain or discomfort. Feels well. Slept well. Notes no cardiac or noncardiac complaints. OBJECTIVE: VITAL SIGNS: Heart rate 76 and blood pressure is 132/64. NECK: Thin. There is no jugular venous distention. There are no carotid bruits. LUNGS: Clear to auscultation. CARDIOVASCULAR: Regular. There is no S3 gallop. ABDOMEN: Soft and nontender. EXTREMITIES: Without cyanosis or clubbing. There is no peripheral edema. Right femoral artery access site is healed well. DATA: EKG reveals sinus rhythm with atrial ectopy, nonspecific ST segment changes only. IMPRESSION: An 82-year-old male with issues as follows: 1. Crescendo angina. 2. Atherosclerotic coronary artery disease, complex history, status post coronary artery bypass grafting in 2006, history of prior multiple stenting to left anterior descending and right coronary artery in 2004. 3. Cardiac catheterization this admission demonstrating high grade stenosis of greater than 90% within the mid right coronary artery and ostial narrowing of the left main of 60%. The patient underwent coronary intervention of the right coronary artery with an excellent result. RECOMMENDATIONS: The patient will be continued on usual prehospital medications. In addition, clopidogrel has been added to regimen. Follow up with primary nurse unit manager, Dr. Yen in 1-2 week's time. Noted the patient that should he have persistent symptoms or recurrence of exertional fatigue and angina, protected left main and may represent possible interventional target.
--- NOTE | 2017-09-30 14:50 | Progress Note ---
Medicine Progress Note Date & Time of Visit: Sep 30, 2017 at 14:37. Subjective Pt was seen and examined Pt said that he has not been feeling good like that for about a month Pt has been working in the hallway with no discomfort He said that he feels good to go Denies any chest pain, palpitation, dizziness and SOB Objective Last 8 Hrs Date Time Temp Pulse Resp B/P (MAP) Pulse Ox O2 Delivery O2 Flow Rate FiO2 09/30/17 12:36 36.5 61 20 118/66 (83) 98 Room Air 09/30/17 12:00 Room Air 09/30/17 08:11 36.9 76 18 132/64 (86) 97 Physical Exam: General- No acute distress Head- atraumatic Eyes- PERRL, EOMI ENT- oropharynx clear Neck- supple, no JVD Lungs- clear to auscultation Heart- regular rhythm Abdomen- normal bowel sounds, soft Extremities- No calf tenderness, right groin area with dressing on, no hematoma noted on the right groin Neuro- alert, oriented x 3; PERRL, EOMI Skin- warm & dry Laboratory Results: Last 24 Hours Test 09/29/17 16:37 09/29/17 20:05 09/30/17 06:42 09/30/17 11:46 Bedside Glucose 239 mg/dl 209 mg/dl 155 mg/dl 133 mg/dl Assessment & Plan CHEST PAIN Risk factors: HTN, Hyperlipidemia, DM, hx tobacco use Received Aspirin 324mg on admission Troponinx3 sets negative Cardiology on board S/P Successful PCI of mid RCA in-stent restenosis with a single LADI (3.5 x 18 Xience extending just distal to prior stent; post-dilated with 3.75 NC). Continue dual-antiplatelet therapy with aspirin and plavix for at least 12 months Continue statin therapy LDL 59, chol 129 and HDL 45 Ok from cardiac standpoint to discharge home Follow up with cardiology dr. Yen btw 1- 2 weeks Cardiac rehab consult ECHO showed * Normal LV chamber size and wall thickness. * Normal LV systolic function, EF 50-55%. * No segmental left ventricular wall motion abnormalities are noted. * Grade I diastolic dysfunction. * Aortic valve sclerosis moderate, without significant aortic valvular stenosis. * Mild mitral regurgitation. * Mild left atrial enlargement. DM II Recent Hba1c 7.4 (09/29/17) Resume metformin on discharge NovoLog sliding scale per protocol DYSLIPIDEMIA LDL at goal continue statin HYPOTHYROIDISM/ HX THYROIDECTOMY Will decrease levothyroxine to 75mcg Check TSH between 4 to 6 weeks BROWN'S ESOPHAGUS continue PPI HX KIDNEY STONES continue allopurinol HX CHRONIC ANEMIA Hbg 11.3 Stable HX PROSTATE CA S/P PROSTATECTOMY DVT Prophylaxis Heparin SQ Disposition Discharge home today Follow up with cardiology with Dr. Yen in 1 to 2 weeks Follow up with your PCP on 10/31 @ 11:25AM Cardiac rehab Consultants: Cardiology Current Inpatient Medications: Current Inpatient Medications Medications (Trade) Dose Ordered Sig/Mandi Route Start Time Stop Time Status Last Admin Dose Admin Acetaminophen (Tylenol Tab) 650 mg Q4H PRN PO 09/28/17 16:45 10/28/17 16:44 09/29/17 23:42 650 MG Magnesium Hydroxide (Milk Of Magnesia Susp) 30 ml Q12H PRN PO 09/28/17 16:45 10/28/17 16:44 Ondansetron HCl (Zofran Inj) 4 mg Q6H PRN IV 09/28/17 16:45 10/28/17 16:44 Nitroglycerin (Nitrostat Tab) 0.4 mg UD PRN SL 09/28/17 16:45 10/28/17 16:44 Aspirin (Ecotrin Tab) 81 mg QAM PO 09/29/17 09:00 10/29/17 08:59 09/30/17 08:06 81 MG Insulin Aspart (novoLOG ASPART) SLIDING SCALE If C... ACHS SC 09/28/17 21:00 10/28/17 20:59 09/30/17 13:03 1 UNITS Glucose (Glucose 40% Gel) 15-30 GRAMS 15 GRAMS... UD PRN PO 09/28/17 16:45 10/28/17 16:44 Glucose (Glucose Chew Tab) 4-8 Tablets 4 Tabl... UD PRN PO 09/28/17 16:45 10/28/17 16:44 Dextrose (Dextrose 50% 50ML Syringe) 25-50ML OF 50% DW IV FOR... UD PRN IV 09/28/17 16:45 10/28/17 16:44 Glucagon (Glucagon Inj) 1 mg UD PRN SQ 09/28/17 16:45 4/27/18 16:44 Allopurinol (Zyloprim Tab) 300 mg DAILY PO 09/29/17 09:00 10/29/17 08:59 09/30/17 08:06 300 MG Atorvastatin Calcium (Lipitor Tab) 20 mg DAILY PO 09/29/17 09:00 10/29/17 08:59 09/30/17 08:06 20 MG Fluticasone Propionate (Flonase Nasal [place]) 2 sprays DAILY CHANG 09/29/17 09:00 10/29/17 08:59 09/29/17 07:51 2 SPRAYS Pantoprazole Sodium (Protonix Tab) 40 mg QAM PO 09/29/17 09:00 10/29/17 08:59 09/30/17 08:07 40 MG Lisinopril (Zestril Tab) 2.5 mg DAILY PO 09/29/17 09:00 10/29/17 08:59 09/30/17 08:06 2.5 MG Heparin Sodium (Porcine) (Heparin Sq 5000 Unit/0.5ml) 5,000 unit Q12 SQ 09/28/17 21:00 10/28/17 20:59 09/30/17 08:06 5,000 UNIT Miscellaneous (Iv Fluids Completed) 1 ea PRN PRN N/A 09/28/17 17:45 09/28/18 17:44 Clopidogrel Bisulfate (plAVix TAB) 75 mg QAM PO 09/30/17 09:00 10/30/17 08:59 09/30/17 08:06 75 MG Levothyroxine Sodium (Synthroid Tab) 75 mcg DAILYBB PO 09/30/17 06:00 10/29/17 06:59 09/30/17 06:22 75 MCG
[2017-09-30] MEDS ORDERED: SYN75 PO (14:56)
[2017-09-30] MEDS ORDERED: PLV75 PO (14:56)
--- NOTE | 2017-09-30 15:16 | Discharge Instructions ---
Discharge Instructions Date of Service Sep 30, 2017. Admission Reason for Admission: Chest Pain Discharge Discharge Diagnosis / Problem: Chest pain Discharge Goals Goal(s): Decrease discomfort, Improve function, Improve disease control Activity Recommendations Activity Limitations: resume your previous activity (as tolerated) . Instructions / Follow-Up Instructions / Follow-Up Follow up with your cardiology Dr. Yen in 1 to 2 weeks Follow up with primary care provider Dr. Elias (Dr. Bynum colleague) on 10/31 @ 11:25AM Your physician will refer you to cardiac rehab Hold metformin for now. OK to resume Metformin on Tuesday night or Tuesday morning Follow up a healthy diet with low Carb and limiting concentrate sweet intake. Continue Plavix and aspirin daily for your heart stent. Notify your physician if you develop any abnormal bleeding while on Plavix such as blood in your urine or stools. Check TSH between 4 to 6 weeks to monitor your thyroid Fall precaution Only do light and easy activities for the next 2 to 3 days. Ask for help with chores and errands while you recover. Have someone drive you to your appointments. Avoid heavy lifting for a while. Your doctor will provide a specific time frame for you. Take your medicines as directed. Do not skip doses. Keep yourself hydrate. This is to help flush the contrast dye out of your body. Check your incisions daily for signs of infection. These include redness, swelling, and drainage. It is normal to have a small bruise or bump where the catheter was inserted. A bruise that is getting larger is not normal and should be reported to your doctor. Do not swim or take baths until the doctor says it's OK. OK to shower Keep your groin area clean Current Hospital Diet Patient's current hospital diet: AHA Diet (Heart Healthy), Diabetes Type 2 Diet Discharge Diet Recommended Diet: AHA Diet (Heart Healthy), Diabetes Type 2 Diet Procedures Procedures Performed: Left heart catheterization, coronary angiography. Pending Studies Studies pending at discharge: no Laboratory Results Hemoglobin A1c Test 09/29/17 07:03 Range/Units Estimated Average Glucose 166 mg/dl Hemoglobin A1c 7.4 H 4.5-5.6 % Lipid Panel Test 09/29/17 07:03 Range/Units Triglycerides Level 125 0-150 mg/dl Cholesterol Level 129 0-200 mg/dl HDL Cholesterol 45 mg/dl Cholesterol/HDL Ratio 2.9 LDL Cholesterol, Calculated 59 mg/dl Medical Emergencies . Who to Call and When: Medical Emergencies: If at any time you feel your situation is an emergency, please call 911 immediately. . Non-Emergent Contact Non-Emergency issues call your: Primary Care Provider Call Non-Emergent contact if: you have any medication questions . . "Provider Documentation" section prepared by Pola Moore. .
--- NOTE | 2017-10-01 18:23 | Discharge Summary ---
Discharge Summary Date of Service Oct 01, 2017. Discharge Summary Admission Date: Sep 29, 2017 at 16:14 Discharge Date: Sep 30, 2017 Discharge Disposition: Home Principal Diagnosis: Chest pain Crescendo angina. Secondary Diagnoses/Problems: DM II DYSLIPIDEMIA HYPOTHYROIDISM/ HX THYROIDECTOMY BROWN'S ESOPHAGUS HX KIDNEY STONES HX CHRONIC ANEMIA HX PROSTATE CA S/P PROSTATECTOMY Procedures: Cardiac Cath S/P Successful PCI of mid RCA in-stent restenosis with a single LADI (3.5 x 18 Xience extending just distal to prior stent; post-dilated with 3.75 NC). ECHO Interpretation Summary * Name: ZAID DRAKE Study Date: 09/29/2017 09:28 AM BP: 126/59 mmHg * Patient Location: 2402 HR: 67 * : 1935 (M/d/yyyy) Gender: Male Height: 67 in * Age: 82 yrs Ethnicity: CA Weight: 136 lb * Ordering Physician: Vinita Camacho * Referring Physician: Self, Referred * Performed By: Quynh Ho RDCS * * Reason For Study: Chest Pain * BSA: 1.7 m2 * -- Conclusions -- * Normal LV chamber size and wall thickness. * Normal LV systolic function, EF 50-55%. * No segmental left ventricular wall motion abnormalities are noted. * Grade I diastolic dysfunction. * Aortic valve sclerosis moderate, without significant aortic valvular stenosis. * Mild mitral regurgitation. * Mild left atrial enlargement. Procedure Details * A complete two-dimensional transthoracic echocardiogram was performed (2D, M- mode, Doppler and color flow Doppler). Left Ventricle * The left ventricle is normal in size. * There is normal left ventricular wall thickness. * Ejection Fraction = 50-55%. * Left ventricular systolic function is normal. * No segmental left ventricular wall motion abnormalities are noted. Right Ventricle * The right ventricular cavity size is normal (basal dimension <4.2 cm in right ventricular apical 4-chamber view). * The right ventricular systolic function is normal as assessed by tricuspid annular plane systolic excursion (TAPSE) (normal >1.5 cm). Atria * The left atrium is mildly dilated. * Right atrial size is normal. * No ASD detected; PFO is not assessed. Mitral Valve * The mitral valve anatomy is normal. * There is no mitral valve stenosis. * There is mild mitral regurgitation. Tricuspid Valve * The tricuspid valve is normal in structure and function. Aortic Valve * The aortic valve is trileaflet. * Aortic valve sclerosis moderate, without significant aortic valvular stenosis. * There is no significant aortic regurgitation. Pulmonic Valve * The pulmonary valve is not well seen, but the Doppler examination is normal without significant regurgitation or stenosis. Great Vessels * The aortic root is normal size. Pericardium/Pleural * There is no pericardial effusion. Left Ventricular Diastolic Function * Grade I diastolic dysfunction, (abnormal relaxation pattern). Consultations: Cardiology Medication Reconciliation New Medications: Clopidogrel Bisulfate (Clopidogrel) 75 Mg Tab 75 MG PO QAM for 30 Days, #30 TAB Levothyroxine Sodium (Synthroid) 75 Mcg Tab 75 MCG PO DAILYBB for 30 Days, TAB Continued Medications: Allopurinol (Zyloprim) 300 Mg Tab 300 MG PO DAILY Aspirin (Aspirin) 81 Mg Tab 81 MG PO DAILY Atorvastatin (Lipitor) 20 Mg Tab 20 MG PO DAILY Fluticasone Propionate (Nasal) (Flonase Allergy Relief) 50 Mcg/Act Spr 2 SPRAYS CHANG DAILY Lansoprazole (Prevacid Solutab) 30 Mg Wilda 30 MG PO DAILY Lisinopril (Zestril) 2.5 Mg Tab 2.5 MG PO DAILY Lutein-Zeaxanthin (Ocuvite Lutein 25 25-5 mg) 1 Cap Cap 1 CAP PO DAILY Metformin Hcl Er (Glucophage Er) 500 Mg Tab 500 MG PO BID Discontinued Medications: Levothyroxine Sodium (Synthroid) 88 Mcg Tab 88 MCG PO DAILY Admission Information HPI (per Admitting provider): Pt is 82 y/o M with PMH HTN, dyslipidemia, CAD s/p stent & CABG, kidney stones, Brown's esophagus, prostate CA s/p prostatectomy, iron deficiency anemia requiring iron infusions presented to ER via EMS with c/o CP. Reports approx 12: 10 was watching the news when started with left sided CP with radiation to L arm that lasted approx 30 minutes. He chewed 4 baby aspirin. Pain resolved and pt reports been pain free since. Denies nausea, vomiting, SOB or diaphoresis with this pain today. Pt reports intermittent "twinges" to left chest that last a couple of seconds and can occur with exertion or without exertion for past couple of months. Reports SOB with exertion for past couple of months also. He follows with Dr Yen - community aide in [place]. Denies fever/chills, diaphoresis, N/V/D/C, AGOSTO, dizziness, syncope, vision changes, neck pain, orthopnea, palpitations, cough, sore throat, choking, otalgia, rhinorrhea, abdominal pain, paresthesias, weakness, extremity edema, rashes, urinary symptoms. 02/2017: nuclear stress test: impression: normal myocardial perfusion SPECT images without evidence for pharmacologically induced ischemia. Mild global left ventricular hypokinesis with left ventricular ejection fraction post stress at 41%. Physical Exam (per Admitting): General Appearance: WD/WN, no apparent distress Head: normocephalic, atraumatic Eyes: normal inspection, PERRL, EOMI, sclerae normal ENT: hearing grossly normal, pharynx normal, + pertinent finding (mucous membranes moist) Neck: supple, no JVD, trachea midline Respiratory/Chest: chest non-tender, lungs clear, normal breath sounds, no respiratory distress Cardiovascular: regular rate, rhythm, no murmur, normal peripheral pulses Abdomen/GI: normal bowel sounds, non tender, soft Extremities/Musculoskelatal: normal inspection, no calf tenderness, normal capillary refill, no pedal edema, normal range of motion Neurologic/Psych: alert, normal mood/affect, oriented x 3 Skin: normal color, warm/dry Hospital Course CHEST PAIN Risk factors: HTN, Hyperlipidemia, DM, hx tobacco use Received Aspirin 324mg on admission Troponinx3 sets negative Cardiology on board S/P Successful PCI of mid RCA in-stent restenosis with a single LADI (3.5 x 18 Xience extending just distal to prior stent; post-dilated with 3.75 NC). Continue dual-antiplatelet therapy with aspirin and plavix for at least 12 months Continue statin therapy LDL 59, chol 129 and HDL 45 Ok from cardiac standpoint to discharge home Follow up with cardiology dr. Yen btw 1- 2 weeks Cardiac rehab consult ECHO showed * Normal LV chamber size and wall thickness. * Normal LV systolic function, EF 50-55%. * No segmental left ventricular wall motion abnormalities are noted. * Grade I diastolic dysfunction. * Aortic valve sclerosis moderate, without significant aortic valvular stenosis. * Mild mitral regurgitation. * Mild left atrial enlargement. DM II Recent Hba1c 7.4 (3/29/18) Resume metformin on discharge NovoLog sliding scale per protocol DYSLIPIDEMIA LDL at goal continue statin HYPOTHYROIDISM/ HX THYROIDECTOMY Will decrease levothyroxine to 75mcg Check TSH between 4 to 6 weeks BROWN'S ESOPHAGUS continue PPI HX KIDNEY STONES continue allopurinol HX CHRONIC ANEMIA Hbg 11.3 Stable HX PROSTATE CA S/P PROSTATECTOMY DVT Prophylaxis Heparin SQ Disposition Discharge home today Follow up with cardiology with Dr. Yen in 1 to 2 weeks Follow up with your PCP on 10/31 @ 11:25AM Cardiac rehab Total time spent on discharge = 40 minutes This includes examination of the patient, discharge planning, medication reconciliation, and communication with other providers. Discharge Instructions Discharge Instructions Date of Service Sep 30, 2017. Admission Reason for Admission: Chest Pain Discharge Discharge Diagnosis / Problem: Chest pain Discharge Goals Goal(s): Decrease discomfort, Improve function, Improve disease control Activity Recommendations Activity Limitations: resume your previous activity (as tolerated) . Instructions / Follow-Up Instructions / Follow-Up Follow up with your cardiology Dr. Yen in 1 to 2 weeks Follow up with primary care provider Dr. Elias (Dr. Bynum colleague) on 10/31 @ 11:25AM Your physician will refer you to cardiac rehab Hold metformin for now. OK to resume Metformin on Tuesday night or Tuesday morning Follow up a healthy diet with low Carb and limiting concentrate sweet intake. Continue Plavix and aspirin daily for your heart stent. Notify your physician if you develop any abnormal bleeding while on Plavix such as blood in your urine or stools. Check TSH between 4 to 6 weeks to monitor your thyroid Fall precaution Only do light and easy activities for the next 2 to 3 days. Ask for help with chores and errands while you recover. Have someone drive you to your appointments. Avoid heavy lifting for a while. Your doctor will provide a specific time frame for you. Take your medicines as directed. Do not skip doses. Keep yourself hydrate. This is to help flush the contrast dye out of your body. Check your incisions daily for signs of infection. These include redness, swelling, and drainage. It is normal to have a small bruise or bump where the catheter was inserted. A bruise that is getting larger is not normal and should be reported to your doctor. Do not swim or take baths until the doctor says it's OK. OK to shower Keep your groin area clean Current Hospital Diet Patient's current hospital diet: AHA Diet (Heart Healthy), Diabetes Type 2 Diet Discharge Diet Recommended Diet: AHA Diet (Heart Healthy), Diabetes Type 2 Diet Procedures Procedures Performed: Left heart catheterization, coronary angiography. Pending Studies Studies pending at discharge: no Laboratory Results Hemoglobin A1c Test 09/29/17 07:03 Range/Units Estimated Average Glucose 166 mg/dl Hemoglobin A1c 7.4 H 4.5-5.6 % Lipid Panel Test 09/29/17 07:03 Range/Units Triglycerides Level 125 0-150 mg/dl Cholesterol Level 129 0-200 mg/dl HDL Cholesterol 45 mg/dl Cholesterol/HDL Ratio 2.9 LDL Cholesterol, Calculated 59 mg/dl Medical Emergencies . Who to Call and When: Medical Emergencies: If at any time you feel your situation is an emergency, please call 911 immediately. . Non-Emergent Contact Non-Emergency issues call your: Primary Care Provider Call Non-Emergent contact if: you have any medication questions . . "Provider Documentation" section prepared by Pola Moore. . Additional Copies To Corey Elias M.D. Sulman, Scott A., D.O.
== END 2017-09-30 16:10 | disposition home or self-care (01) | DRG 247 ==
LOC: EDBD 13:36 → C.EDB 13:37 → C.2T 16:34 → ENRESERV 16:59 → OBSVTOIN 09-29 16:14
PROVIDERS: ADMIT Internal Medicine; ATTEND Internal Medicine
PROC: 4A023N7 Measurement of Cardiac Sampling and Pressure, Left Heart, Percutaneous Approach (ICD-10-PCS; 2017-09-29)
PROC: B211110 Fluoroscopy of Multiple Coronary Arteries using Low Osmolar Contrast, Laser Intraoperative (ICD-10-PCS; 2017-09-29)
PROC: 3E033PZ Introduction of Platelet Inhibitor into Peripheral Vein, Percutaneous Approach (ICD-10-PCS; principal; 2017-09-29 11:09)
PROC: 027034Z Dilation of Coronary Artery, One Artery with Drug-eluting Intraluminal Device, Percutaneous Approach (ICD-10-PCS; principal; 2017-09-29 11:09)
DX: I25.110 Atherosclerotic heart disease of native coronary artery with unstable angina pectoris (principal); T82.857A Stenosis of other cardiac prosthetic devices, implants and grafts, initial encounter; K22.70 Barrett's esophagus without dysplasia; E11.9 Type 2 diabetes mellitus without complications; I10 Essential (primary) hypertension; E03.9 Hypothyroidism, unspecified; Z85.46 Personal history of malignant neoplasm of prostate; Z95.5 Presence of coronary angioplasty implant and graft; E78.5 Hyperlipidemia, unspecified; Z96.641 Presence of right artificial hip joint; Z95.1 Presence of aortocoronary bypass graft; Z79.84 Long term (current) use of oral hypoglycemic drugs; Y79.2 Prosthetic and other implants, materials and accessory orthopedic devices associated with adverse incidents; Y92.009 Unspecified place in unspecified non-institutional (private) residence as the place of occurrence of the external cause; Z82.49 Family history of ischemic heart disease and other diseases of the circulatory system

== ENCOUNTER 2018-10-18 18:51 | Inpatient (IN) ==
[2018-10-18] MEDS ORDERED: NITROGLYCERIN SL 0.4 MG/TAB TAB SL PRN (23:30)
[2018-10-18] MEDS ORDERED: ACETAMINOPHEN 325 MG TAB PO PRN (23:30)
--- NOTE | 2018-10-18 23:31 | History & Physical Report ---
Date of Service October 18, 2018 Assessment & Plan (1) Chest pain: Possibly from hypertensive urgency SBP 160-180s at home as per outpatient records. Other differentials include : ACS, history CAD status post CABG, stent pulmonary embolism with abnormal d-dimer hyperlipidemia on statin Rx hypothyroidism, euthyroid as of recent outpatient TSH prostate cancer status post surgery DM 2 on oral meds, reasonable control as of recent outpatient hemoglobin A1c of 7.7 last July 2018 past tobacco abuse OBS PCU CT chest PE study Follow troponin Cardiology consult in a.m. for chest pain if PE workup unremarkable Basal insulin, ISS BG goal 140-180, update hemoglobin A1c DVT prophylaxis. Lovenox subcu DNR History of Present Illness Chief Complaint: Chest pain Primary Care Provider: Jean Carlos Bynum DO History obtained from patient and records. Medical history significant for CAD status post CABG/stent, hypertension, hyperlipidemia, hypothyroidism, Ralph's esophagus, prostate cancer status post surgery, DM 2 on oral meds, chronic anemia, baseline hemoglobin 11-12, past tobacco abuse. Recent confinement September 2017 for ACS. Patient underwent PCI of mid RCA stent restenosis. Yesterday patient noted crushing chest pain both at rest and during exertion accompanied by shortness of breath. Different from other chest pain episodes in the past. No cough symptoms. SBP at home 160-180s as per records. Patient consulted [facility]. BP normal Chest pain pretty much gone upon arrival at the ER as per patient. Troponin was negative. Chest x-ray showed cardiac enlargement, coarse interstitial disease. No ischemia on EKG. Patient transferred to [facility] for further evaluation as per request. Medical History as above Surgical History : CABG, carpal tunnel surgery, hemorrhoid surgery, thyroidectomy, prostate surgery, hip replacement Family History : Bone cancer, lung cancer, diabetes, stroke Personal/Social history : Past tobacco abuse, occasional EtOH intake, retired [employer] Allergies Allergy/AdvReac Type Severity Reaction Status Date / Time No Known Allergies Allergy Verified 10/19/18 00:07 Home Medications Home Medications Medication Instructions Recorded Confirmed Type allopurinol 300 mg PO DAILY 10/19/18 10/19/18 History atorvastatin 20 mg PO DAILY 10/19/18 10/19/18 History clopidogrel [Plavix] 75 mg PO DAILY 10/19/18 10/19/18 History fluticasone propionate [Flonase 2 spray INTRANASAL DAILY 10/19/18 10/19/18 History Allergy Relief] levothyroxine 88 mcg PO DAILYBB 10/19/18 10/19/18 History lisinopril 2.5 mg PO DAILY 10/19/18 10/19/18 History lutein-zeaxanthin 1 cap PO DAILY 10/19/18 10/19/18 History metformin 1,000 mg PO QDB 10/19/18 10/19/18 History metformin 500 mg PO QDD 10/19/18 10/19/18 History gqessohb-vbk-DL-lycopen-lutein 1 tab PO DAILY 10/19/18 10/19/18 History [Centrum Silver] omeprazole 20 mg PO DAILYBB 10/19/18 10/19/18 History Past Med/Surg History Social History Preferred Language: Yi Communication Ability: Effective Sustainable Products Marketing Manager Required: No Beliefs That Will Affect Care: None Current Living Situation: Spouse Feels Safe at Home: Yes Safety Concerns: Feels Safe At This Time Smoking Status: Former smoker Do You Dip or Chew Tobacco: No Hx Alcohol Use: Yes Alcohol type: beer Review of Systems Review of Systems: As per HPI, all 10 systems reviewed, all other ROS negative Physical Exam Vital Signs (Past 24 Hours): Last Vital Signs Temp 36.8 C 10/18/18 23:13 Pulse 65 10/18/18 23:13 Resp 16 10/18/18 23:13 BP 131/67 10/18/18 23:13 Pulse Ox 94 10/18/18 23:13 Physical Exam: GENERAL: Comfortable, pleasant, no respiratory distress SKIN: Pallor , warm HEENT: Sparse hair, pale palpebral conjunctivae, no ptosis, moist buccal mucosa NECK : Supple, no tenderness CHEST : CTA, no tenderness HEART : RRR, systolic murmur ABDOMEN: Soft , nontender EXTREMITIES : No LE swelling/tenderness, no other conspicuous deformities noted NEUROLOGIC : Coherent, no facial asymmetry, no other gross focality Results & Data Laboratory Results Laboratory Results WBC 6.92 K/uL (4.8-10.8) 10/19/18 01:42 RBC 3.14 M/uL (4.7-6.1) L 10/19/18 01:42 Hgb 10.6 g/dL (14.0-18.0) L 10/19/18 01:42 Hct 31.3 % (42-52) L 10/19/18 01:42 MCV 99.7 fL (80-100) 10/19/18 01:42 MCH 33.8 pg (25-34) 10/19/18 01:42 MCHC 33.9 g/dL (32-36) 10/19/18 01:42 RDW Std Deviation 46.2 fL (36.4-46.3) 10/19/18 01:42 RDW Coeff of Lj 12.7 % (11.5-14.5) 10/19/18 01:42 Plt Count 218 K/uL (130-400) 10/19/18 01:42 MPV 9.4 fL (7.4-10.4) 10/19/18 01:42 Immature Gran % (Auto) 0.1 % 10/19/18 01:42 Neut % (Auto) 62.4 % 10/19/18 01:42 Lymph % (Auto) 23.0 % 10/19/18 01:42 [place] % (Auto) 12.3 % 10/19/18 01:42 Eos % (Auto) 1.9 % 10/19/18 01:42 Baso % (Auto) 0.3 % 10/19/18 01:42 Immature Gran # (Auto) 0.01 K/uL (0.00-0.02) 10/19/18 01:42 Neut # (Auto) 4.32 K/uL (1.4-6.5) 10/19/18 01:42 Lymph # (Auto) 1.59 K/uL (1.2-3.4) 10/19/18 01:42 [place]on # (Auto) 0.85 K/uL (0.11-0.59) H 10/19/18 01:42 Eos # (Auto) 0.13 K/uL (0-0.5) 10/19/18 01:42 Baso # (Auto) 0.02 K/uL (0-0.2) 10/19/18 01:42 APTT 25.2 Seconds (21.0-31.0) 10/19/18 01:42 PTT Ratio 0.9 10/19/18 01:42 Sodium 139 mmol/L (136-145) 10/19/18 01:42 Potassium 3.7 mmol/L (3.5-5.1) 10/19/18 01:42 Chloride 107 mmol/L (98-107) 10/19/18 01:42 Carbon Dioxide 30 mmol/L (21-32) 10/19/18 01:42 Anion Gap 2.0 (3-11) L 10/19/18 01:42 BUN 13 mg/dl (7-18) 10/19/18 01:42 Creatinine 1.03 mg/dl (0.6-1.4) 10/19/18 01:42 Est Cr Clr Drug Dosing 43.8 ml/min 10/19/18 01:42 Est GFR ( Amer) 76.4 10/19/18 01:42 Est GFR (Non-Af Amer) 65.9 10/19/18 01:42 BUN/Creatinine Ratio 12.7 (10-20) 10/19/18 01:42 Glucose 181 mg/dl (70-99) H 10/19/18 01:42 Calcium 8.0 mg/dl (8.5-10.1) L 10/19/18 01:42 Magnesium 1.7 mg/dl (1.8-2.4) L 10/19/18 01:42 Troponin I < 0.015 ng/ml (0-0.045) 10/19/18 01:42 NT-Pro-B Natriuret Pep 951 pg/ml (0-1800) 10/19/18 01:42 Triglycerides 85 mg/dl (0-150) 10/19/18 01:42 Cholesterol 127 mg/dl (0-200) 10/19/18 01:42 LDL Cholesterol, Calc 52 mg/dl 10/19/18 01:42 VLDL Cholesterol, Calc 17 mg/dl 10/19/18 01:42 HDL Cholesterol 58 mg/dl 10/19/18 01:42 Cholesterol/HDL Ratio 2 10/19/18 01:42 Diagnostic Findings EKG from [facility] as per my interpretation (10/18/2018) Rate 65, NSR, nonspecific T wave abnormalities, PVCs
[2018-10-18] MEDS ORDERED: GLUCAGON FOR INJ 1 MG VIAL SQ PRN (23:33)
[2018-10-18] MEDS ORDERED: CARBOHYDRATES FOR HYPOGLYCEMIA PO PRN (23:33)
[2018-10-18] MEDS ORDERED: DEXTROSE 50% 50 ML SYRINGE IV PRN (23:33)
[2018-10-18] MEDS ORDERED: GLUCOSE 40% GEL 15 GM TUBE PO PRN (23:33)
[2018-10-18] MEDS ORDERED: GLUCOSE 10 TABS/TUBE PO PRN (23:33)
[2018-10-19] MEDS: INSULIN ASPART 100 UNITS/ML 3 ML PEN SC SCH ×5 (00:41→21:13)
[2018-10-19] MEDS ORDERED: MAGNESIUM SULFATE / D5W 1 GM/100 ML BAG IV ONE (01:24)
[2018-10-19] MEDS ORDERED: MoRPHine SULFATE 2 MG/ML CARP IV PRN (01:32)
[2018-10-19] MEDS ORDERED: PROCHLORPERAZINE 5 MG in SYRINGE 4 ML IV PRN (01:32)
[2018-10-19] MEDS ORDERED: TRAMADOL HCL 50 MG TABLET PO PRN (01:32)
[2018-10-19 02:16] LABS: Basophils # (auto) 0.02 K/uL (0-0.2); Basophils % (auto) 0.3 %; Eosinophils # (auto) 0.13 K/uL (0-0.5); Eosinophils % (auto) 1.9 %; Hematocrit (blood only) 31.3 % (42-52); Hemoglobin 10.6 g/dL (14.0-18.0); Immature Granulocytes # (auto) 0.01 K/uL (0.00-0.02); Immature Granulocytes % (auto) 0.1 %; Lymphocytes # (auto) 1.59 K/uL (1.2-3.4); Mean Corpuscular Hgb Conc 33.9 g/dL (32-36); Mean Corpuscular Volume 99.7 fL (80-100); Mean Platelet Volume 9.4 fL (7.4-10.4); Monocytes # (auto) 0.85 K/uL (0.11-0.59); Monocytes % (auto) 12.3 %; Neutrophils # (auto) 4.32 K/uL (1.4-6.5); Neutrophils % (auto) 62.4 %; Partial Thromboplastin Ratio 0.9; Partial Thromboplastin Time 25.2 Seconds (21.0-31.0); Platelet Count 218 K/uL (130-400); RDW Coefficient of Variation 12.7 % (11.5-14.5); RDW Standard Deviation 46.2 fL (36.4-46.3); Red Blood Count 3.14 M/uL (4.7-6.1); White Blood Count 6.92 K/uL (4.8-10.8)
[2018-10-19 02:25] LABS: BUN Creatinine Ratio 12.7 (10-20); Blood Urea Nitrogen 13 mg/dl (7-18); Carbon Dioxide 30 mmol/L (21-32); Chloride 107 mmol/L (98-107); Creatinine Clr Calc Pharmacy 43.8 ml/min; Est GFR (African American) 76.4; Est GFR (Non-African American) 65.9; Glucose 181 mg/dl (70-99); Magnesium 1.7 mg/dl (1.8-2.4); Potassium 3.7 mmol/L (3.5-5.1); Sodium 139 mmol/L (136-145)
[2018-10-19 02:30] LABS: Chol HDL Ratio 2; Cholesterol 127 mg/dl (0-200); HDL Cholesterol 58 mg/dl; LDL Cholesterol Calculated 52 mg/dl; NT Pro B Type Natriuretic Pept 951 pg/ml (0-1800); Triglycerides 85 mg/dl (0-150); Troponin I < 0.015 ng/ml (0-0.045); VLDL Cholesterol 17 mg/dl
[2018-10-19] MEDS ORDERED: LANTUS PER UNIT CHARGE SQ STA (02:31)
[2018-10-19 03:23] LABS: D Dimer 1050 ug/L FEU (0-500)
[2018-10-19] MEDS ORDERED: OPTIRAY 320 125ml IV PRN (04:41)
[2018-10-19] MEDS: NSS + 20MEQ KCL 20 MEQ/1,000 ML BAG IV SCH ×2 (05:38→23:40)
[2018-10-19] MEDS: LEVOTHYROXINE SODIUM 88 MCG TABLET PO SCH (06:04)
[2018-10-19] MEDS: PANTOprazole 40 MG TAB PO SCH (06:04)
[2018-10-19 06:30] LABS: Estimated Average Glucose 169 mg/dl; Hemoglobin A1C 7.5 % (4.5-5.6)
[2018-10-19 08:05] LABS: INR 1.1 (0.9-1.1); Prothrombin Time 10.8 Seconds (9.0-12.0)
--- NOTE | 2018-10-19 08:11 | CT Scan Report ---
CHEST CTA for PULMONARY ARTERIES CT DOSE: 224.44 mGy.cm HISTORY: Mid chest pain. TECHNIQUE: Multiaxial CT images of the chest were performed following the intravenous administration of contrast to evaluate the pulmonary arteries. Maximal intensity projection images were also obtaine d. A dose lowering technique was utilized adhering to the principles of ALARA. COMPARISON STUDY: None. FINDINGS: There is an old moderate L1 compression deformity. There are poststernotomy changes. Calcif ied granulomas within the spleen. The visualized liver and adrenal glands are unremarkable. Calcified right hilar lymph nodes. No mediastinal or hilar lymphadenopathy. The heart is mildly enlarged. No p leural or pericardial effusions. Normal caliber thoracic aorta with no evidence for dissection. There are heavily calcified coronary arteries. No filling defects within the pulmonary arteries to suggest pulmonary embolus. Calcified granuloma within the right upper lobe. Moderate pulmonary fibrosis. Sharonda pical pleural-parenchymal scarring is noted. No pneumothorax. The central airways are patent. A few n odular densities at the lung apices are nonspecific but may represent chronic change. IMPRESSION: 1. No evidence for pulmonary embolus. 2. Pulmonary fibrosis. Electronically signed by: Darius More M.D. 10/19/2018 8:09 AM
[2018-10-19] MEDS: FLUTICASONE PROPIONATE NA SPR 16 GM BTL SCH (08:55)
[2018-10-19] MEDS ORDERED: ENOXAPARIN INJ 30 MG/0.3 ML SYR SQ SCH (09:00)
--- NOTE | 2018-10-19 09:09 | Hospitalist Progress Note ---
Date of Service October 19, 2018 Assessment & Plan (1) Chest pain: Presented with chest pain, chest heaviness on left side of chest wall lasting for more than 5 minutes, associated with shortness of breath, has been chest pain-free since admission, symptoms is equivalent to angina Patient has multiple cardiac risk factors: History of coronary artery disease status post CABG, CAD status post multiple cardiac stents, Hypertension hyperlipidemia Initial troponin negative, twelve-lead EKG shows no evidence of ischemic changes Patient is kept n.p.o. for possible stress test, Patient will not be able to do a treadmill stress test, says he has not been able to run for last few years Will benefit with pharmacological stress test Cardiology evaluation requested Present on Admission?: Yes (2) Coronary artery disease: status post coronary artery bypass grafting 2006, history of multiple stent in left anterior descending and right coronary artery in 2004 Recent admission on 09/2017 cardiac cath showed high-grade stenosis of greater than 90% within the mid right coronary artery and ostial narrowing of the left main of 60% Status post PCI of mid RCA in-stent stenosis with LADI Patient has been continue with aspirin and Plavix presents with chest pain equivalent to angina Cardiology consulted, Will wait for input patient will be kept n.p.o. until cardiology Evaluation for possible cardiac stress test Present on Admission?: Yes (3) Dyslipidemia: Continue on statin Fasting lipid profile shows well-controlled LDL (4) DM type 2 (diabetes mellitus, type 2): Hold metformin, insulin sliding scale while in hospital Present on Admission?: Yes (5) HTN (hypertension): Reports of hypertensive urgency on admission, so far vitals report in hospital blood pressure looks reasonably controlled, continue with beta-alia Present on Admission?: Yes (6) Hypothyroidism: Continue levothyroxine (7) Iron deficiency anemia: Anemia history of iron deficiency anemia with Ralph's esophagus, lab reviewed gradual trending down of hemoglobin in the last 4 weeks from 12-10 MCV within normal limit Ordered for iron studies Stool for Hemoccult We will check with the patient for recent colonoscopy status (8) Ralph esophagus: Continue PPI CODE STATUS: Full code DVT prophylaxis: Lovenox Will change to SCD and teds, given anemia, patient is ambulatory and baseline, low risk Disposition: Expected to be discharged home when medically stable, Medicine follow-up with Dr. Jean Carlos Bynum Subjective Patient sitting up on the edge of bed, says he has been feeling fine, did not had any chest pain since yesterday evening arriving to ER from [place] No complaint of shortness of breath, no dizzy spell, no dyspnea on exertion Patient described the chest pain was heaviness discomfort on his left side of the chest associated with shortness of breath lasted for a few minutes Physical Exam Physical Exam: GENERAL: No sign of distress, HEENT: Sclera nonicteric, pink-purple bilateral equal reactive to light extraocular muscle intact Normal oral mucosa, neck: No JVD, no thyromegaly, trachea midline Lungs: Clear to auscultate, no wheeze or rales Cardiovascular: Regular S1 and S2, no murmur or gallop, no JVD, no lower extremity edema Abdomen: Soft, nontender, bowel sounds active, no hepatosplenomegaly Extremities: No rash or deformity, normal joint, Neuro: No focal neurological deficit, no dysarthria, no facial droop Psych: Alert awake oriented x3: Euthymic Skin: No rash LYMPH NODES: No cervical lymphadenopathy Results & Data Vital Signs (Past 12 Hours) Vital Signs Temp Pulse Pulse Resp BP Pulse Ox 10/19/18 07:16 36.4 C L 64 16 129/59 L 97 10/19/18 03:14 37.0 C 66 17 115/66 99 10/19/18 00:00 74 10/18/18 23:13 36.8 C 65 16 131/67 94 10/18/18 21:11 36.7 C 68 16 152/91 H 97 (1) Coronary artery disease Associated angina: with stable angina Coronary Disease-Associated Artery/Lesion type: [place] artery [place] vs. transplanted heart: [place] heart Qualified Code(s): I25.118 - Atherosclerotic heart disease of [place] coronary artery with other forms of angina pectoris (2) Chest pain Chest pain type: precordial pain Qualified Code(s): R07.2 - Precordial pain
[2018-10-19] MEDS: ATORVASTATIN 20 MG TAB PO SCH (15:04)
[2018-10-19] MEDS: CLOPIDOGREL BISULFATE 75 MG TAB PO SCH (15:04)
[2018-10-19] MEDS: ALLOPURINOL 300 MG TAB PO SCH (15:05)
[2018-10-19] MEDS: LISINOPRIL 2.5 MG TAB PO SCH (15:05)
[2018-10-19] MEDS: CEROVITE ADV FORMULA TAB PO SCH (15:05)
[2018-10-19] MEDS ORDERED: ASPIRIN 81 MG ECTAB PO STA (15:42)
[2018-10-19] MEDS: INSULIN GLARGINE SOLOSTAR 100 UNITS/ML 3 ML PEN SQ SCH (21:12)
--- NOTE | 2018-10-20 05:16 | Consultation Report ---
DATE OF CONSULTATION: 10/19/2018 CARDIOLOGY CONSULTATION REFERRING PHYSICIAN: Dr. Lee. INDICATIONS: Chest pain. HISTORY OF PRESENT ILLNESS: The patient is an 83-year-old male with complex past coronary history available via review of records and carries a history of remote coronary intervention receiving interventions of the left anterior descending and right coronary artery in 2004 with ultimately undergoing coronary bypass grafting single vessel with a DOMINGUEZ graft to the LAD in 2006. He in the past presented to [facility] on 09/28/2017 one year ago with signs and symptoms of crescendo angina and underwent diagnostic cardiac catheterization at that time. The study demonstrated high grade 90% mid RCA lesion which was treated with drug-eluting stent. He had a widely patent DOMINGUEZ graft to the LAD; however, there is ostial disease of the left main as well as proximal LAD disease compromising the diagonal. He was managed medically post-intervention for residual disease. The patient presents this admission, noting recent stability until day of admission, while walking his dog, he experienced severe substernal chest pain radiating to his jaw and neck associated with dyspnea. Symptoms resolved spontaneously; however, only do recur again while sitting watching television at rest and lasting 20-30 minutes. Pain resolved on the drive to the Emergency Room and completely resolved with 1 sublingual nitroglycerin. He has noted no recent nitroglycerin usage, noted no recent change in medications or therapies, has been compliant with medications. Notes no fevers, chills or productive cough. Notes no melena, hematochezia, dysuria or hematuria. Notes no unexplained fevers or infections. Does follow for routine iron infusions due to chronic multifactorial iron deficiency. REVIEW OF SYSTEMS: Otherwise negative. PAST MEDICAL HISTORY: Notable for as described, chronic iron deficiency anemia, multifactorial, requiring intermittent infusion therapy; history of type 2 diabetes mellitus, chronic osteoarthritis, hypothyroidism and past description of Ralph's esophagus. PAST SURGICAL HISTORY: Notable for radical prostatectomy in 2005, past right hip replacement, carpal tunnel surgery in 2011, bone marrow biopsy in 2012, single vessel coronary bypass grafting in 2006, partial thyroidectomy in with completion in the , past hemorrhoidectomy. FAMILY HISTORY: Positive for stroke in brother. SOCIAL HISTORY: [facility] He is a nonsmoker, rare alcohol user. He remains relatively active for age, walks his dog frequently. PHYSICAL EXAMINATION: GENERAL: The patient is currently pain free and comfortable without acute complaint. He does have some difficulty with exact details of current complaints but notes no acute issues this morning. VITAL SIGNS: Heart rate 66, blood pressure is 130/79, blood pressure was elevated on initial presentation to [facility] prior to transfer to [facility], though blood pressure on arrival here was 152/91 with topical nitrates in place. HEENT: Normocephalic, atraumatic. Nares without discharge. Throat was clear. NECK: Supple without thyromegaly, lymphadenopathy, JVD. There are no carotid bruits. LUNGS: Clear with good aeration to both bases. CARDIOVASCULAR: Regular with normal S1, S2. There is no audible murmur or rub. PMI is nondisplaced. ABDOMEN: Soft, nontender. There is no palpable hepatosplenomegaly, no hepatojugular reflux. EXTREMITIES: Without cyanosis or clubbing. There is no peripheral edema. There are intact distal pulses at 2/4. NEUROLOGIC: The patient is answering questions. There was some confusion regarding exact details and recency of last coronary intervention. DATA: EKG on presentation revealed sinus bradycardia with sinus arrhythmia, nonspecific ST segment changes. LABORATORY STUDIES: White cell count 6.9, hemoglobin is 10.6, hematocrit is 31.3, platelet count is 218. Sodium is 139, potassium is 3.7, chloride is 107, bicarbonate is 30, BUN is 13, creatinine is 1.0, calcium is 8.0, magnesium is 1.7. Troponins on serial testing x2 are nondetectable. Echocardiogram is pending. Cholesterol is 127, LDL 52, HDL 58. Chest CTA performed demonstrated no evidence of pulmonary embolus. There are pulmonary fibrotic changes of evident. IMPRESSION: An 83-year-old male with known coronary disease with complex history including past remote coronary bypass grafting in 2006, presents now with 2 episodes of severe chest pain, substernal consistent with past angina, initially occurring with ambulation, second at rest, relieved with sublingual and topical nitrates. Initial enzymes have not redemonstrated acute myocardial injury. Echocardiogram is pending. Findings are suggestive of an acute coronary syndrome in a patient with known coronary artery disease, prior coronary intervention of the right coronary in September 2017. PLAN: Continue current medications including topical nitrates. Will gently hydrate this evening with potential plans for cardiac catheterization in a.m. Will resume dual antiplatelet therapy with clopidogrel already ordered, adding aspirin back. The patient not on beta alia in the past due to intolerance issues/bradycardia. If patient has recurrence of symptoms, would anticoagulate with heparin. We will review echocardiogram. ERIN
[2018-10-20] MEDS: INSULIN ASPART 100 UNITS/ML 3 ML PEN SC SCH ×4 (05:53→20:55)
[2018-10-20] MEDS: LEVOTHYROXINE SODIUM 88 MCG TABLET PO SCH (05:56)
[2018-10-20] MEDS: PANTOprazole 40 MG TAB PO SCH (05:56)
[2018-10-20 07:28] LABS: BUN Creatinine Ratio 16.5 (10-20); Calcium 8.7 mg/dl (8.5-10.1); Creatinine Clr Calc Pharmacy 38.6 ml/min; Est GFR (African American) 66.2; Est GFR (Non-African American) 57.1
[2018-10-20] MEDS: CEROVITE ADV FORMULA TAB PO SCH (07:59)
[2018-10-20] MEDS: LISINOPRIL 2.5 MG TAB PO SCH (07:59)
[2018-10-20] MEDS: ATORVASTATIN 20 MG TAB PO SCH (07:59)
[2018-10-20] MEDS: ASPIRIN 81 MG ECTAB PO SCH (07:59)
[2018-10-20] MEDS: FLUTICASONE PROPIONATE NA SPR 16 GM BTL SCH (07:59)
[2018-10-20] MEDS: CLOPIDOGREL BISULFATE 75 MG TAB PO SCH (07:59)
[2018-10-20] MEDS: ALLOPURINOL 300 MG TAB PO SCH (07:59)
[2018-10-20] MEDS ORDERED: NiCARDipine HCL INJ 2.5 MG/ML 10 ML AMP ONE (09:08)
[2018-10-20] MEDS ORDERED: MIDAZOLAM HCL 1 MG/ML 2ML VIAL ONE (09:08)
[2018-10-20] MEDS ORDERED: HEPARIN (PORCINE) 1000 UNIT/ML 10 ML (CATH LAB USE ONLY) ONE (09:08)
[2018-10-20] MEDS ORDERED: NITROGLYCERIN/D5W 100MCG/ML 20ML SYR ONE (09:08)
[2018-10-20] MEDS ORDERED: fentaNYL citrate 100 MCG/2 ML VIAL ONE (09:08)
--- NOTE | 2018-10-20 10:45 | Pre Anesthesia Assessment ---
Date of Service October 20, 2018 Pre Sedation Assessment Vital Signs Temp Pulse Pulse Resp BP Pulse Ox 10/20/18 07:00 36.4 C L 69 13 146/59 H 94 10/20/18 03:32 36.7 C 70 17 122/61 97 10/19/18 23:42 36.8 C 68 18 135/71 97 10/19/18 20:25 82 10/19/18 19:12 36.6 C 67 17 135/70 99 10/19/18 15:23 36.6 C 66 17 130/79 98 Pre-Sedation Airway Assessment Smoking Status: Former smoker Mallampati Class: III Procedure Planning Contraindications for Sedation: none Current Medications Reviewed: Yes Notes The planned sedation has been discussed with the patient. Informed Consent was obtained. I have identified the patient, determined the appropriateness of sedation and have assessed the patient immediately prior to the procedure. All medicine(s) and interventions are by my order.
--- NOTE | 2018-10-20 11:40 | Cardiac Catheterization ---
Cardiac Cath Procedure: Brief Procedure Date October 20, 2018 Pre-Procedure Diagnosis Pre-Procedure Diagnosis: Acute Coronary Syndrome and Angina AUC Score AUC Score: 8 Post-Procedure Diagnosis Post-Procedure Diagnosis: Severe CAD (In-stent stenosis right coronary) Procedure(s) Performed Procedure(s) Performed: Coronary Angiography and Left Heart Cath Furniture Mechanic Chase Azevedo MD Wafer Fab Operator(s) Pascual Alberts Estimated Blood Loss Estimated Blood Loss: <15 cc Medication(s) Medication(s): Fentanyl (12.5 mcg IV), Lidocaine 1% (Local infiltration access site) and Versed (1 mg IV) Preliminary Findings Right dominant coronary anatomy Widely patent left internal mammary artery to the left anterior descending Culprit 99% in-stent stenosis right coronary artery with distal collateral fill faintly [id number] Ostial left main stenosis 6070 % Left anterior descendin% ostial, 80% midportion after diagonal branch. The distal vessel fills well via left internal mammary fill and retrograde to areas of stenosis and past Left circumflex: Very large with trivial first marginal branch large multi- branching obtuse marginal and a moderate-sized posterior lateral branch. Mild luminal irregularities in left circumflex system nothing greater than 30 percent Ramus intermedius: Small vessel without significant disease Right coronary artery dominant heavily stented vessel throughout its proximal midportion. It has 40% at its origin with 99% subtotal stenosis in its midportion at site of prior stent distal filling via left to right collateral flow as well as antegrade flow LV angiography not performed, LVEDP 8 Recommendations Recommendations: PCI without planned CABG Specimens Specimens: None Fluids (cc crystalloids) Fluids (cc crystalloids): 91 Anesthesia Start time: 1052, stop time: 1130 Procedural Complication(s) None
--- NOTE | 2018-10-20 12:11 | Post Anesthesia Assessment ---
Date of Service October 20, 2018 Post Sedation Assessment Vital Signs Temp Pulse Pulse Resp BP Pulse Ox 10/20/18 07:00 36.4 C L 69 13 146/59 H 94 10/20/18 03:32 36.7 C 70 17 122/61 97 10/19/18 23:42 36.8 C 68 18 135/71 97 10/19/18 20:25 82 10/19/18 19:12 36.6 C 67 17 135/70 99 10/19/18 15:23 36.6 C 66 17 130/79 98 Recovery Score Activity: Moves 4 extremities Respiration: Deep Breath/Cough Circulation: +/-20% PreAnes Value Consciousness: Fully Awake Oxygen Saturation: O2 needed for >90% Discharge Sedation Level of Care: Fast Track Phase II Post Sedation Plan On clinical assessment, the patient appears to have tolerated the sedation without complications. Patient is recovering as anticipated. Patient will continue to be monitored by nursing and may be discharged when sedation discharge criteria are met per below protocol. Upon Completions of procedure and additional 15 minutes continue every 5 minute vital signs and the P.A.R. score; then discharge to a Phase I or Fast Track to Phase II per the following guidelines: * Discharge Patient to appropriate Phase II area if PAR is 8 or greater or return to pre- procedure baseline. The post - procedure orders will be as directed. * If PAR score is less than 8 or not return to pre-procedure baseline then patient will follow Phase I monitoring till PAR is reached for Phase II. The Phase I may be done in procedure room or may call to secure a Phase I area. * If naloxone or flumazenil are used for reversal, hold in Phase I for continued monitoring from when last reversal dose was given for a minimum of 60 minutes or longer pending the nurse and/or physician discretion of patient condition before discharge to Phase II. Please call the Sedation Physician to re-evaluate and complete post-note for discharge to Phase II area. Do NOT discharge from procedure sedation or Phase 1 until post- sedation evaluation note is complete by procedure /sedation MD Sedation Discharge Instructions to be given to the patient at discharge to home.
[2018-10-20] MEDS ORDERED: CLOPIDOGREL BISULFATE 300 MG TAB ONE (12:16)
--- NOTE | 2018-10-20 12:21 | Cardiac Catheterization ---
Cardiac Cath Procedure Full Procedure Date October 20, 2018 Pre-Procedure Diagnosis Pre-Procedure Diagnosis: Acute Coronary Syndrome AUC Score AUC Score: 8 Post-Procedure Diagnosis Post-Procedure Diagnosis: Severe CAD (In-stent stenosis right coronary) and Successful PCI Procedure(s) Performed Procedure(s) Performed: Coronary Angiography and Drug Eluting Stent Architectural Project Captain Shar Weller MD Bottle Label Inspector(s) Pascual Alberts Estimated Blood Loss Estimated Blood Loss: <15 cc Medication(s) Medication(s): Clopidogrel, Fentanyl (12.5 mcg IV), Heparin, Lidocaine 1% (Local infiltration access site), Nicardipine, Nitroglycerin and Versed (1 mg IV) Summary of Findings Indication: ACS Access: 6Fr right GRAIN OPERATOR Catheter: AR1 guide Findings: For full details of patient's coronary angiography please see cath report dictated by Dr. Azevedo. Briefly patient found to have subtotal occlusion of late-mid stented segment. Decision to proceed with PCI. Procedure: RCA cannulated with AR 1 guide Director Project Management 50 wire passed across lesion into distal R-PDA In-stent mid RCA lesion dilated with 2.5 balloon and 3.0 angiosculpt 3.0 x 18 Henri LADI placed across distal aspect of prior stent into distal RCA (prior stent Xience) Stent post-dilated with 3.5 NC IC vasodilators administered for spasm. Post procedure HAYDEE 3 flow with no apparent coronary complications. Summary: 1. Successful PCI of late mid into distal RCA in-stent subtotal occlusion with single LADI (3.0 x 18 Henri; post-dilated with 3.5 NC). Recommendations: Return to PCU Reloaded with clopidogrel in analyst microbiology lab. Continue ASA/Clopidogrel indefinitely Continue ASCVD risk factor modification. Hemodynamics Rest Ao:: 141/53/91 Final Ao: 143/51/91 LV: -- Recommendations Recommendations: PCI without planned CABG Specimens Specimens: None Radiation Exposure (mGy) 2619 Contrast (mls) 151 Fluids (cc crystalloids) Fluids (cc crystalloids): 91 Drains Drains: 149 Anesthesia moderate Procedural Complication(s) None Disposition PCU ACC Data: Washery Engineer Cardiac Status Clinical evaluation leading to the procedure CAD Presenation: Unstable angina Anginal Classification: CCS IV Heart Failure: No Cardiogenic Shock within 24 Hours: No Imaging Studies Past 6 Months: Yes Stress Studies Past 6 Months: No Diagnostic Physicians Name: Shar Weller MD Closure Device Percutaneous Entry Location: Femoral Closure Device: Angio-Seal Recommendations: PCI without planned CABG PCI Indication: Unstable Angina Lesion Segment Name: mid RCA Culprit Artery: Yes Stenosis Prior to Rx (%): 99 Chronic Total Occlusion: No IVUS: No FFR: No Pre-Procedure HAYDEE Flow: 1 Previously Treated Lesion: Timeframe: 1-2 years Treated with Stent: Yes In-Stent Restenosis: Yes Stent Type: LADI Yes Lesion Complexity: Non-High/Non-C Lesion Length (mm): 15 Thrombus Present: Yes Bifurcation Lesion: No Guidewire Across Lesion: Stenosis Post-Procedure (%): 0 Post-Procedure HAYDEE Flow: 3 Devices(s) Deployed: Yes Yes Intraprocedure Events Significant Disection: No Perforation: No
[2018-10-20] MEDS ORDERED: SODIUM CHLORIDE 0.9% 1000ML 1,000 ML IV SCH ×2 (12:30)
--- NOTE | 2018-10-20 17:04 | Cardiology Progress Note ---
Date of Service October 20, 2018 Assessment & Plan (1) Crescendo angina: Cardiac catheterization demonstrated high-grade greater than 90% in-stent stenosis of the right coronary artery a prior stent placed 1 year ago Patient underwent successful intervention earlier today is doing well post pr ocedure Plan: Continue dual antiplatelet therapy with clopidogrel and aspirin, beta- alia contraindicated due to resting bradycardia. Would increase lisinopril to 5 mg p.o. daily We will add low-dose oral nitrates with Isordil 20 mg twice per day. Increase atorvastatin to 40 mg/day Patient wishes to follow-up with primary legal technician Dr. Yen please send copies of all reports (2) HTN (hypertension): As above (3) Iron deficiency anemia: Patient receives routine iron infusions (4) Ralph esophagus: (5) Status post insertion of drug-eluting stent into right coronary artery for coronary artery disease: Dual antiplatelet therapy without interruption Subjective Patient seen and examined both before and after diagnostic cardiac catheterization and subsequent PCI. Post procedure feels well. Minimal minor groin discomfort otherwise no complaints no chest pain or shortness of breath no dizziness or lightheadedness right groin access healing well. Physical Exam Constitutional: WD/WN, vitals as above Eyes: PERRL, conjunctivae normal, anicteric sclerae Neck: trachea midline, no thyromegaly Respiratory: normal respiratory effort, lungs clear to auscultation Cardiovascular: Rate/Rhythm: regular rate and regular rhythm Heart Sounds: normal S1 and normal S2 Vessels: normal peripheral pulses; no carotid bruit Extremities: no pedal edema Gastrointestinal (Abdomen): normal bowel sounds, soft, nontender, no hepatosplenomegaly Musculoskeletal: no cyanosis or clubbing, extremities motor strength 5/5 Results & Data Vital Signs (Past 12 Hours) Vital Signs Temp Pulse Pulse Pulse Resp BP BP 10/20/18 16:00 71 15 164/79 H 10/20/18 15:06 36.8 C 77 15 169/66 H 10/20/18 15:00 63 13 160/85 H 10/20/18 14:06 67 16 174/84 H 10/20/18 13:36 78 19 159/74 H 10/20/18 13:01 77 20 152/71 H 10/20/18 12:45 74 16 181/74 H 10/20/18 12:30 67 18 152/73 H 10/20/18 12:24 36.8 C 70 20 116/99 10/20/18 07:00 36.4 C L 69 13 146/59 H Pulse Ox 10/20/18 16:00 98 10/20/18 15:06 98 10/20/18 15:00 10/20/18 14:06 98 10/20/18 13:36 95 10/20/18 13:01 100 10/20/18 12:45 97 10/20/18 12:30 99 10/20/18 12:24 95 10/20/18 07:00 94 Laboratory Results Laboratory Results - last 24 hr 10/19/18 10/20/18 10/20/18 19:46 05:46 05:50 Activ Coag Time Kaolin Sodium 138 Potassium 4.0 Chloride 107 Carbon Dioxide 23 Anion Gap 8.0 BUN 19 H Creatinine 1.16 Est Cr Clr Drug Dosing 38.6 Est GFR ( Amer) 66.2 Est GFR (Non-Af Amer) 57.1 BUN/Creatinine Ratio 16.5 Glucose 134 H POC Glucose 173 H 137 H Calcium 8.7 10/20/18 10/20/18 10/20/18 10:48 13:07 16:03 Activ Coag Time Kaolin 224 H Sodium Potassium Chloride Carbon Dioxide Anion Gap BUN Creatinine Est Cr Clr Drug Dosing Est GFR ( Amer) Est GFR (Non-Af Amer) BUN/Creatinine Ratio Glucose POC Glucose 121 H 123 H Calcium
[2018-10-20] MEDS: ISOSORBIDE DINITRATE 20 MG TAB PO SCH (18:42)
--- NOTE | 2018-10-20 20:20 | Hospitalist Progress Note ---
Date of Service October 20, 2018 Assessment & Plan (1) Crystal angina: Presented with crushing substernal chest pain, history of extensive coronary disease status post CABG, status post multiple PCI Patient input from cardiology Underwent cardiac cath, showed high grade re-in-stent stenosis of RCA, status post successful PCI with LADI placement Patient has not had any chest pain since admission Appreciate input from cardiology Patient will be continue with dual antiplatelet, Not on beta-alia for baseline bradycardia Patient was started with low-dose nitrate Present on Admission?: Yes (2) Chest pain: Presented with chest pain, chest heaviness on left side of chest wall lasting for more than 5 minutes, associated with shortness of breath, has been chest pain-free since admission, symptoms is equivalent to angina Patient has multiple cardiac risk factors: History of coronary artery disease status post CABG, CAD status post multiple cardiac stents, Hypertension hyperlipidemia Appreciate cardiology consult, status post cardiac cath, with successful PCI Present on Admission?: Yes (3) Status post insertion of drug-eluting stent into right coronary artery for coronary artery disease: Subjective Status post repeat cardiac cath, stent placement today, has been chest pain- free, no complaint of chest pain, shortness of breath patient appears to be comfortable Physical Exam Constitutional: WD/WN, vitals as above Eyes: PERRL, conjunctivae normal, anicteric sclerae ENMT: Mallampati Class: III Neck: trachea midline, no thyromegaly Respiratory: normal respiratory effort, lungs clear to auscultation Cardiovascular: Rate/Rhythm: regular rate and regular rhythm Heart Sounds: normal S1 and normal S2 Vessels: normal peripheral pulses; no carotid bruit Extremities: no pedal edema Gastrointestinal (Abdomen): normal bowel sounds, soft, nontender, no hepatosplenomegaly Musculoskeletal: no cyanosis or clubbing, extremities motor strength 5/5 Results & Data Vital Signs (Past 12 Hours) Vital Signs Temp Pulse Pulse Pulse Resp BP BP 10/20/18 19:24 36.7 C 102 H 24 104/50 L 10/20/18 19:14 78 10/20/18 18:41 102/50 L 10/20/18 18:06 36.4 C L 84 18 98/60 L 10/20/18 17:38 36.4 C L 73 19 122/54 L 10/20/18 16:00 71 15 164/79 H 10/20/18 15:06 36.8 C 77 15 169/66 H 10/20/18 15:00 63 13 160/85 H 10/20/18 14:06 67 16 174/84 H 10/20/18 13:36 78 19 159/74 H 10/20/18 13:01 77 20 152/71 H 10/20/18 12:45 74 16 181/74 H 10/20/18 12:30 67 18 152/73 H 10/20/18 12:24 36.8 C 70 20 116/99 Pulse Ox 10/20/18 19:24 97 10/20/18 19:14 10/20/18 18:41 10/20/18 18:06 98 10/20/18 17:38 98 10/20/18 16:00 98 10/20/18 15:06 98 10/20/18 15:00 10/20/18 14:06 98 10/20/18 13:36 95 10/20/18 13:01 100 10/20/18 12:45 97 10/20/18 12:30 99 10/20/18 12:24 95 (1) Chest pain Chest pain type: precordial pain Qualified Code(s): R07.2 - Precordial pain
[2018-10-20] MEDS: INSULIN GLARGINE SOLOSTAR 100 UNITS/ML 3 ML PEN SQ SCH (20:55)
[2018-10-20] MEDS ORDERED: SODIUM CHLORIDE 0.9% 1000ML 500 ML IV ONE (23:48)
[2018-10-20] MEDS ORDERED: SODIUM CHLORIDE 0.9% 500 ML IV ONE (23:53)
[2018-10-21 00:19] LABS: Basophils # (auto) 0.01 K/uL (0-0.2); Basophils % (auto) 0.1 %; Hematocrit (blood only) 27.6 % (42-52); Hemoglobin 9.6 g/dL (14.0-18.0); Immature Granulocytes # (auto) 0.03 K/uL (0.00-0.02); Immature Granulocytes % (auto) 0.3 %; Lymphocytes # (auto) 0.86 K/uL (1.2-3.4); Lymphocytes % (auto) 8.4 %; Mean Corpuscular Hgb Conc 34.8 g/dL (32-36); Mean Corpuscular Volume 97.5 fL (80-100); Mean Platelet Volume 9.5 fL (7.4-10.4); Monocytes # (auto) 0.89 K/uL (0.11-0.59); Monocytes % (auto) 8.7 %; Neutrophils # (auto) 8.47 K/uL (1.4-6.5); Neutrophils % (auto) 82.5 %; Platelet Count 199 K/uL (130-400); RDW Coefficient of Variation 12.8 % (11.5-14.5); RDW Standard Deviation 45.2 fL (36.4-46.3); Red Blood Count 2.83 M/uL (4.7-6.1); White Blood Count 10.26 K/uL (4.8-10.8)
[2018-10-21 00:35] LABS: BUN Creatinine Ratio 14.1 (10-20); Creatinine Clr Calc Pharmacy 33.7 ml/min; Est GFR (African American) 56.1; Est GFR (Non-African American) 48.4
[2018-10-21] MEDS ORDERED: SODIUM CHLORIDE 0.9% 500 ML IV ONE (01:27)
[2018-10-21] MEDS ORDERED: LACTATED RINGER'S 1,000 ML IV ONE (02:57)
[2018-10-21 03:30] LABS: Appearance Urine Clear (Clear); Bacteria Urine Automated Negative (Negative); Blood Urine Negative (Negative); Color Urine Dark Yellow; Epithelial Cell Urine Auto >30 /lpf (0-5); Glucose Urine UA Negative (Negative); Ketones Urine 1+ (Negative); Leukocyte Esterase Urine Negative (Negative); Nitrite Urine Negative (Negative); Protein Urine Trace (Negative); RBC Urine Automated 0-4 /hpf (0-4); Specific Gravity Urine > 1.045 (1.000-1.030); Urobilinogen Urine Negative (Negative)
[2018-10-21 03:36] LABS: Bilirubin Urine Negative (Negative); Ictotest Urine Negative (Negative)
[2018-10-21 03:52] LABS: Cast Urine Automated 0 /lpf (0-5)
[2018-10-21] MEDS: PANTOprazole 40 MG TAB PO SCH (05:42)
[2018-10-21] MEDS: LEVOTHYROXINE SODIUM 88 MCG TABLET PO SCH (05:42)
[2018-10-21] MEDS ORDERED: LISINOPRIL 5 MG TAB PO SCH (09:00)
[2018-10-21] MEDS: ISOSORBIDE DINITRATE 20 MG TAB PO SCH (09:18)
[2018-10-21] MEDS: INSULIN ASPART 100 UNITS/ML 3 ML PEN SC SCH ×2 (09:19→13:04)
[2018-10-21] MEDS: CLOPIDOGREL BISULFATE 75 MG TAB PO SCH (09:22)
[2018-10-21] MEDS: FLUTICASONE PROPIONATE NA SPR 16 GM BTL SCH (09:22)
[2018-10-21] MEDS: CEROVITE ADV FORMULA TAB PO SCH (09:22)
[2018-10-21] MEDS: ASPIRIN 81 MG ECTAB PO SCH (09:22)
[2018-10-21] MEDS: ALLOPURINOL 300 MG TAB PO SCH (09:22)
[2018-10-21] MEDS: ATORVASTATIN 20 MG TAB PO SCH (09:22)
[2018-10-21] MEDS ORDERED: LISINOPRIL 2.5 MG TAB PO SCH (09:30)
--- NOTE | 2018-10-21 09:45 | Cardiology Progress Note ---
Date of Service October 21, 2018 Assessment & Plan (1) Crescendo angina: Cardiac catheterization demonstrated high-grade greater than 90% in-stent stenosis of the right coronary artery a prior stent placed 1 year ago Patient underwent successful intervention earlier today is doing well post pr ocedure Plan: Continue dual antiplatelet therapy with clopidogrel and aspirin (likely lifelong given instent restenosis), beta-alia contraindicated due to resting bradycardia. unfortunately bp could not support isordil and increased dose of lisinopril will d/c isordil and should be discharged with SL nitro prn lisinopril changed back to 2.5 mg daily ok to d/c to home from cardiac standpoint. Patient wishes to follow-up with primary surfboard designer Dr. Yen please send copies of all reports (2) HTN (hypertension): As above (3) Iron deficiency anemia: Patient receives routine iron infusions (4) Ralph esophagus: (5) Status post insertion of drug-eluting stent into right coronary artery for coronary artery disease: Dual antiplatelet therapy without interruption Subjective Pt seen and examined, oob in chair, states that he feels well. Spoke with nursing in regards to relative hypotension overnight, asymptomatic. BP still low this AM. Denies cp, sob, palpitations, lightheadedness or dizziness. tele reviewed: sinus rhythm without arrhythmia or significant ectopy. Review of Systems Review of Systems: All systems reviewed & are unremarkable except as noted in HPI & below Physical Exam Physical Exam: General: Awake, alert and oriented x 3. No acute distress. HEENT: Normocephalic, atraumatic. Pupils equal, round and reactive to light and accommodation. Extraocular muscles are intact. Anicteric sclera. Moist mucous membranes. Neck: No JVD. No bruit. Cardiovascular: Regular. Positive S-4. Normal S-1 and S-2. No S-3. No murmurs or rubs. Pulmonary: Clear to auscultation B/L. No rales, rhonchi or wheezing Abdomen: Bowel sounds x 4, soft. No rebound, guarding or tenderness. No organomegaly. Extremities: No clubbing, cyanosis or edema. +2 pedal pulses bilaterally. Skin: Warm and dry. Results & Data Vital Signs (Past 12 Hours) Vital Signs Temp Pulse Pulse Pulse Resp BP BP 10/21/18 07:00 36.6 C 80 19 100/47 L 04/20/19 05:50 96/47 L 89/44 L 10/21/18 02:55 36.6 C 90 16 88/51 L 10/21/18 00:37 110 H 92/48 L 89/42 L 10/20/18 23:45 100 H 81/36 L 10/20/18 23:30 37.0 C 109 H 22 75/32 L 89/37 L Pulse Ox 10/21/18 07:00 97 10/21/18 05:50 10/21/18 02:55 98 10/21/18 00:37 10/20/18 23:45 10/20/18 23:30 97
--- NOTE | 2018-10-21 12:49 | Discharge Summary ---
Date of Service October 21, 2018 Admission HPI Per Admitting Provider History obtained from patient and records. Medical history significant for CAD status post CABG/stent, hypertension, hyperlipidemia, hypothyroidism, Ralph's esophagus, prostate cancer status post surgery, DM 2 on oral meds, chronic anemia, baseline hemoglobin 11-12, past tobacco abuse. Recent confinement September 2017 for ACS. Patient underwent PCI of mid RCA stent restenosis. Yesterday patient noted crushing chest pain both at rest and during exertion accompanied by shortness of breath. Different from other chest pain episodes in the past. No cough symptoms. SBP at home 160-180s as per records. Patient consulted [facility]. BP normal Chest pain pretty much gone upon arrival at the ER as per patient. Troponin was negative. Chest x-ray showed cardiac enlargement, coarse interstitial disease. No ischemia on EKG. Patient transferred to [facility] for further evaluation as per request. 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 Discharge Exam Constitutional WD/WN, vitals as above Eyes PERRL, conjunctivae normal, anicteric sclerae ENMT Mallampati Class: III Neck trachea midline, no thyromegaly Respiratory normal respiratory effort, lungs clear to auscultation Cardiovascular Rate/Rhythm: regular rate and regular rhythm Heart Sounds: normal S1 and normal S2 Vessels: normal peripheral pulses; no carotid bruit Extremities: no pedal edema Gastrointestinal (Abdomen) normal bowel sounds, soft, nontender, no hepatosplenomegaly Musculoskeletal no cyanosis or clubbing, extremities motor strength 5/5 Discharge Data Allergies Allergy/AdvReac Type Severity Reaction Status Date / Time No Known Allergies Allergy Verified 10/19/18 00:07 Consultations 10/19/18 09:06 Consult Cardiology Routine 10/20/18 12:22 Consult Cardiac Rehabilitation Routine Procedures Performed Operation Date: 10/20/18 09:00 Actual Procedures s Cineradiography w/Routine Exam - Chase Azevedo MD p Cath, Left w/Cors Vent Grafts - Chase Azevedo MD s Drug Eluting Stent SGl Vessel - Mehul Weller MD Ordered Studies 10/19/18 03:24 CT angio chest PE protocol Urgent 10/20/18 07:59 CL Cath Imgs for PACS use only Routine Hospital Course (1) Crescendo angina: Presented with crushing substernal chest pain, history of extensive coronary disease status post CABG, status post multiple PCI Patient input from cardiology Underwent cardiac cath, 10/20/2018 showed high grade re-in-stent stenosis of RCA, status post successful PCI with LADI placement Patient has not had any chest pain since admission Appreciate input from cardiology Patient will be continue with dual antiplatelet-will be continued indefinitely Not on beta-alia for baseline bradycardia Patient was started with low-dose nitrate-discontinued secondary to hypotension Evaluated by cardiology today, plan to discharge home with dual antiplatelets, sublingual nitrate as needed for chest pain, he wants to follow-up up with his cardiology Dr. Yen (2) Chest pain: Unstable angina, symptom has resolved since admission, Presented with chest pain, chest heaviness on left side of chest wall lasting for more than 5 minutes, associated with shortness of breath, has been chest pain-free since admission, symptoms is equivalent to angina Patient has multiple cardiac risk factors: History of coronary artery disease status post CABG, CAD status post multiple cardiac stents, Hypertension hyperlipidemia Appreciate cardiology consult, status post cardiac cath, shows high-grade re-in-stent stenosis of right RCA with successful PCI No complaint of chest pain, shortness of breath, dyspnea on exertion, ambulating in hallway, without any distress Stable to be discharged home discussed plan with cardiology (3) Status post insertion of drug-eluting stent into right coronary artery for coronary artery disease: Dual antiplatelet therapy without interruption Total Time Total Time Spent Total Time Spent (In Minutes): Approximately 40 minutes Total Time Includes: Examination of the Patient, Discharge Planning, Medication Reconciliation and Communication With Other Providers Discharge Plan Discharge Items Patient Disposition: Home - Self-Care Reason For Visit: CHEST PAIN Discharge Diagnosis: CHEST PAIN /CARDIAC STENT PLACEMENT Discharge Goals: Decrease discomfort and Therapeutic intervention Activity: As commented below Activity Comment: TOLERATED Lifting: No more than 10 pounds Lifting Comment: FOR NEXT 3-4 DAYS Bathing: Keep incision dry Bathing Comment: MAY SHOWER TODAY Non-emergency contact: Primary Care Provider Call non-emergency contact if: you have any medication questions Follow-up/Referrals: Sulman,Jean Carlos A., DO [Primary Care Provider] - None Diet: Heart Healthy Addtl Provider Instructions: HOSPITAL FOLLOW UP WITH DR BYNUM AT [facility] ON 10/27/18 @ 1 PM FOLLOW UP WITH CARDIOLOGY DR YEN TAKE ASPIRIN AND PLAVIX AFTER MEAL IT IS VERY IMPORTANT NOT TO SKIP ANY OF THE MEDICATIONS TO KEEP THE CARDIAC STENT WIDE OPEN NOTIFY YOU FAMILY PHYSICIAN FOR ANY DARK /BLACK COLOURED STOOL DO NOT TAKE METFORMIN TODAY OR TOMORROW -YOU ARE GIVEN CONTRAST DYE DURING CARDIAC CATH START TAKING METFORMIN ON Tuesday10/23/18 Prescriptions: New aspirin [Ecotrin Low Strength] 81 mg Tablet,Delayed Release (Dr/Ec) 81 mg PO QAM 30 Days Qty: 30 RF: 3 nitroglycerin 0.4 mg tablet, sublingual 0.4 mg sublingual Q5M PRN (Reason: chest pain) Qty: 30 RF: 3 Continued atorvastatin 20 mg Tablet 20 mg PO DAILY RF: 0 clopidogrel [Plavix] 75 mg Tablet 75 mg PO DAILY RF: 0 levothyroxine 88 mcg Tablet 88 mcg PO DAILYBB RF: 0 omeprazole 20 mg Capsule,Delayed Release(Dr/Ec) 20 mg PO DAILYBB RF: 0 allopurinol 300 mg Tablet 300 mg PO DAILY RF: 0 fluticasone propionate [Flonase Allergy Relief] 50 mcg/actuation [place],Suspension 2 spray INTRANASAL DAILY RF: 0 metformin 500 mg Tablet Extended Release 24 Hr 1,000 mg PO QDB RF: 0 metformin 500 mg Tablet Extended Release 24 Hr 500 mg PO QDD RF: 0 lisinopril 2.5 mg Tablet 2.5 mg PO DAILY RF: 0 Centrum Silver 0.4-300-250 mg-mcg-mcg Tablet 1 tab PO DAILY RF: 0 lutein-zeaxanthin 25-5 mg Capsule 1 cap PO DAILY RF: 0 Stand-Alone Forms: [facility] Discharge Orders: Discharge Order (Routine); Ordered 10/21/18 Ordered By: Cait Lee Admission Data Admit Date/Time: 10/20/18 15:47 Attending Provider: Cait Lee Admit Provider: Ovi Evans Primary Care Provider: Jean Carlos Bynum Other Providers: Vito Pop ; Christopher Culp ; Chase Azevedo ; Naeem Francis ; Eligio Ramos ; Jeffery Drake ; Shobha Snyder ; Nehal Malik Service: Telemetry Other Interventions: Discharge Summary Assessment (RN) Last Done: 10/21/18 13:05 DC Date/Time DO NOT enter until pt leaves facility: 10/21/18 14:07
--- NOTE | 2018-10-26 17:00 | Cardiac Catheterization ---
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 Automatic Chase Azevedo MD Proc Tech(s) Pascual Alberts Estimated Blood Loss Estimated Blood Loss: <15 cc Medication(s) Medication(s): Clopidogrel, Fentanyl (12.5 mcg IV), Heparin, Lidocaine 1% (Local infiltration access site), Nicardipine, Nitroglycerin and Versed (1 mg IV) Summary of Findings Right dominant coronary anatomy Widely patent left internal mammary artery to the left anterior descending Culprit 99% in-stent stenosis right coronary artery with distal collateral fill faintly [id number] Ostial left main stenosis 6070 % Left anterior descendin% ostial, 80% midportion after diagonal branch. The distal vessel fills well via left internal mammary fill and retrograde to areas of stenosis and past Left circumflex: Very large with trivial first marginal branch large multi- branching obtuse marginal and a moderate-sized posterior lateral branch. Mild luminal irregularities in left circumflex system nothing greater than 30 percent Ramus intermedius: Small vessel without significant disease Right coronary artery dominant heavily stented vessel throughout its proximal midportion. 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 Most recent coronary intervention for crescendo angina mid right coronary artery approximately 1 year ago Patient re-presented now with severe angina with low-level exertion and rest on appropriate medical therapies CAD Presenation: Unstable angina Anginal Classification: CCS III Heart Failure: No Cardiogenic Shock within 24 Hours: No Cardiac Arrest within 24 Hours: No Imaging Studies Past 6 Months: Yes Stress Studies Past 6 Months: No Standard Exercise Test: No Stress Echocardiogram: No Stress Testing w/SPECT MPI: No Cardiac CTA: No Coronary Anatomy Dominant: Right Left Main (% Stenosis): Ostial (60 -70) LAD (% Stenosis): Ostial (50) and Mid (80 after 1st diagonal) D1 (% Stenosis): Proximal (Diffusely diseased) D2 (% Stenosis): Normal Circumflex (% Stenosis): Proximal (Moderate irregularities) OM1 (% Stenosis): Normal (Small) OM3 (% Stenosis): Normal (Large trifurcation vessel) RCA (% Stenosis): Mid (99% InStent) R PL1 (% Stenosis): Proximal R PL2 (% Stenosis): Normal AM (% Stenosis): Normal Ramus (% Stenosis): Normal (Trivial vessel) Grafts - LAD (%): Normal (Widely patent DOMINGUEZ graft to the LAD 0) Diagnostic Physicians Name: Chase Azevedo MD Status: Urgent Closure Device Recommendations: PCI without planned CABG PCI Indication: Angina despite med therapy
== END 2018-10-21 14:07 | disposition home or self-care (01) | DRG 247 ==
LOC: 2E